=== PATIENT | male | born 1955 | race Caucasian/White ===

== ENCOUNTER 2019-09-16 11:56 | Observation (INO) | payer BC, MEDICARE, OTHER ==
--- NOTE | 2019-09-16 12:13 | ED ---
HPI Chest Pain - HPI Summary HPI Summary: This pt is a 64 y/o male presenting to [facility] via EMS c/o chest pain today. Pt reports this morning he woke up not "feeling himself." He notes he was very tired, exhausted, and "felt like the wind got knocked out" of him. He states his chest pain began around 1000 today and describes his pain as pressure. He denies nausea, vomiting, dizziness. Pt went to the pain clinic in [place] and was noted by the staff that patient was having difficulty breathing. Per nurse' s note, "Pt. was put on the pulse ox monitor and noticed that pt. was only SATing @ 90%." EMS administered aspirin and 2L of oxygen via NC with mild relief. Patient reports he uses a CPAP machine at night and has noticed recently it is harder to breathe with it. Pt additionally notes his legs ache from the knee down. PMHx: high cholesterol, HTN, DM type 2, COPD, osteomyelitis. Denies hx of MS. Pt reports one toe and a half on the left were amputated 3-4 weeks ago and is currently on vancomycin for osteomyelitis. He uses Heparin flush to flush his line. Denies taking any anticoagulants. Pt lives in [place], [place]. - History of Current Complaint Time Seen by Provider: 09/16/19 12:00 Hx Obtained From: Patient Onset/Duration: Started Hours Ago, Still Present Timing: Lasting Hours Current Severity: Moderate Pain Intensity: 5 Pain Scale Used: 0-10 Numeric Chest Pain Location: Diffuse Chest Pain Radiates: No Character: Pressure/Squeezing - pressure Aggravating Factor(s): Nothing Alleviating Factor(s): Nothing Associated Signs and Symptoms: Positive: Chest Pain, Shortness of Breath. Negative: Dizziness, Fever, Nausea, Vomiting - Allergy/Home Medications Allergies/Adverse Reactions: Allergies Allergy/AdvReac Type Severity Reaction Status Date / Time fentanyl Allergy Swelling Verified 09/16/19 12:16 oxycodone Allergy Swelling Verified 09/16/19 12:16 sertraline [From Zoloft] Allergy Hives Verified 09/16/19 12:16 Home Medications: Home Medications Albuterol/Ipratropium NEB.ENID* [Duoneb (Albuterol 2.5 MG/Ipratropium 0.5 MG)] 1 neb INH QID PRN 09/16/19 [History Confirmed 09/16/19] Bumetanide TAB* [Bumex 2 MG TAB*] 4 mg PO DAILY 09/16/19 [History Confirmed ] Dronabinol CAP* [Marinol CAP*] 5 mg PO QAM 09/16/19 [History Confirmed 09/16/19] Dronabinol CAP* [Marinol CAP*] 10 mg PO QPM 09/16/19 [History Confirmed 09/16/19 ] Dupilumab [Dupixent] 300 mg SUBCUT ONCE 09/16/19 [History Confirmed 09/16/19] Fenofibrate(NF) [Tricor(NF)] 145 mg PO DAILY 09/16/19 [History Confirmed ] Finasteride TAB* [Proscar TAB*] 5 mg PO DAILY 09/16/19 [History Confirmed ] Gabapentin CAP(*) [Neurontin 300 CAP(*)] 600 mg PO TID 09/16/19 [History Confirmed 09/16/19] Glucagon [Baqsimi] 3 mg LEFT NARE ONCE PRN 09/16/19 [History Confirmed 09/16/19] Hydrocortisone INJ* 100 MG/2ML [Solu-CORTEF*] 100 mg IM ONCE 09/16/19 [History Confirmed 09/16/19] Hydrocortisone TAB* [Cortef TAB*] 20 mg PO BID 09/16/19 [History Confirmed 09/16] Insulin Degludec [Tresiba] 160 unit SUBCUT QAM 09/16/19 [History Confirmed 09/16] Insulin Lispro [Humalog Kwikpen] 0 unit SUBCUT .SLIDING SCALE TID MDD 250u 09/16 [History Confirmed 09/16/19] Levorphanol 2 mg (Nf) 1 mg PO QID PRN 09/16/19 [History Confirmed 09/16/19] Levothyroxine TAB* [Synthroid TAB*] 75 mcg PO DAILY 09/16/19 [History Confirmed 09/16/19] Levothyroxine TAB* [Synthroid TAB*] 200 mcg PO DAILY 09/16/19 [History Confirmed 09/16/19] Mupirocin 2% OINT* [Bactroban 2 % Oint*] 1 applic TOPICAL BID PRN 09/16/19 [ History Confirmed 09/16/19] Normal Saline 250 ml IV Q12H 09/16/19 [History Confirmed 09/16/19] Marvin-3 Fatty Acids (Nf) [Fish Oil (NF)] 2,000 mg PO BID 09/16/19 [History Confirmed 09/16/19] Rosuvastatin (NF) [Crestor (NF)] 20 mg PO BEDTIME 09/16/19 [History Confirmed ] Silodosin(NF) [Rapaflo(NF)] 4 mg PO DAILY 09/16/19 [History Confirmed 09/16/19] Tamsulosin CAP* [Flomax CAP*] 0.4 mg PO DAILY 09/16/19 [History Confirmed ] Valsartan TAB* [Diovan TAB*] 160 mg PO DAILY 09/16/19 [History Confirmed ] Vancomycin 1250mg/250ml 1,250 mg IV Q12H 09/16/19 [History Confirmed 09/16/19] Vancomycin HCl in 5 % Dextrose [Vancomycin 1.5 Gram/250 ml-D5w] 1.5 gm IV DAILY 09/16/19 [History Confirmed 09/16/19] Venlafaxine ER (NF) [Effexor ER (NF)] 150 mg PO DAILY 09/16/19 [History Confirmed 09/16/19] metFORMIN* [Glucophage 500 MG TAB *] 1,000 mg PO BID 09/16/19 [History Confirmed 09/16/19] PMH/Surg Hx/FS Hx/Imm Hx Endocrine/Hematology History: Reports: Hx Diabetes - type 2 Cardiovascular History: Reports: Hx Hypercholesterolemia, Hx Hypertension Denies: Hx Myocardial Infarction Respiratory History: Reports: Hx Chronic Obstructive Pulmonary Disease (COPD) Musculoskeletal History: Reports: Other Musculoskeletal History - Osteomyelitis - Surgical History Surgical History: Yes Surgery Procedure, Year, and Place: 2 back surgeries. Amputation of toes Infectious Disease History: No Infectious Disease History: Denies: Traveled Outside the [place] in Last 30 Days - Family History Known Family History: Negative: Cardiac Disease - Social History Alcohol Use: None Substance Use Type: Reports: Marijuana Smoking Status (MU): Former Smoker Review of Systems Negative: Fever, Skin Diaphoresis Positive: Chest Pain Positive: Shortness Of Breath Negative: Vomiting, Nausea Musculoskeletal: Other - POSITIVE: leg pain Neurological: Other - NEGATIVE: dizziness All Other Systems Reviewed And Are Negative: Yes Physical Exam - Summary Physical Exam Summary: VITAL SIGNS: Reviewed. GENERAL: Patient is a well-developed and obese male who is lying comfortable in the stretcher in no acute distress. HEAD AND FACE: No signs of trauma. No ecchymosis, hematomas or skull depressions. No sinus tenderness. EYES: PERRLA, EOMI x 2, No injected conjunctiva, no nystagmus. EARS: Hearing grossly intact. Ear canals and tympanic membranes are within normal limits. MOUTH: Oropharynx within normal limits. NECK: Supple, trachea is midline, no adenopathy, no JVD, no carotid bruit, no c- spine tenderness, neck with full ROM. CHEST: Symmetric, no tenderness at palpation LUNGS: Clear to auscultation bilaterally. No wheezing or crackles. CVS: Regular rate and rhythm, S1 and S2 present, no murmurs or gallops appreciated. ABDOMEN: Soft, non-tender. No signs of distention. No rebound, no guarding, and no masses palpated. Bowel sounds are normal. EXTREMITIES: FROM in all major joints, no edema, no cyanosis or clubbing. Amputation of the left first and second toes. NEURO: Alert and oriented x 3. No acute neurological deficits. Speech is normal and follows commands. SKIN: Dry and warm Triage Information Reviewed: Yes Vital Signs On Initial Exam: Initial Vitals Temp Pulse Resp BP Pulse Ox 96.9 F 85 20 173/100 98 09/16/19 11:57 09/16/19 11:57 09/16/19 11:57 09/16/19 11:57 09/16/19 11:57 Vital Signs Reviewed: Yes Procedures - Sedation Patient Received Moderate/Deep Sedation with Procedure: No Diagnostics - Vital Signs Vital Signs Temp Pulse Resp BP Pulse Ox 09/16/19 11:57 96.9 F 85 20 173/100 98 - Laboratory Result Diagrams: 09/16/19 12:25 09/16/19 12:25 Lab Statement: Any lab studies that have been ordered have been reviewed, and results considered in the medical decision making process. - Radiology Chest XR Radiology Interpretation Completed By: Radiologist Summary of Radiographic Findings: IMPRESSION: Pulmonary vascular congestion. Dr. Angel has reviewed this report. - EKG 11:57 Cardiac Rate: NL - at 75 bpm EKG Rhythm: 2nd Degree HB Summary of EKG Findings: EKG at 1157 shows second degree AV block at [address] elevations. No old EKG for comparison. ED physician has reviewed and interpreted this EKG. 12:15 Cardiac Rate: NL - at 87 bpm EKG Rhythm: 2nd Degree HB Summary of EKG Findings: EKG at 1215 shows again a second degree heart block at [address] elevations. ED physician has reviewed and interpreted this EKG. Chest Pain Course/Dx - Course Assessment/Plan: This pt is a 64 y/o male presenting to [facility] via EMS c/o chest pain today. Pt reports this morning he woke up not "feeling himself." He notes he was very tired, exhausted, and "felt like the wind got knocked out" of him. He states his chest pain began around 1000 today and describes his pain as pressure. He denies nausea, vomiting, dizziness. Pt went to the pain clinic in [place] and was noted by the staff that patient was having difficulty breathing. Per nurse's note, "Pt. was put on the pulse ox monitor and noticed that pt. was only SATing @ 90%." EMS administered aspirin and 2L of oxygen via NC with mild relief. Patient reports he uses a CPAP machine at night and has noticed recently it is harder to breathe with it. Pt additionally notes his legs ache from the knee down. PMHx: high cholesterol, HTN, DM type 2, COPD, osteomyelitis. Denies hx of MS. Pt reports one toe and a half were amputated 3- 4 weeks ago and is currently on vancomycin for osteomyelitis. He uses Heparin flush to flush his line. Denies taking any anticoagulants. Blood work without any significant abnormality except for slight anemia, glucose is 108, magnesium 1.7, CK-MB is 12.7. EKG shows a sinus rhythm with a second agree AV block. HEART score: 5. Patient was given aspirin by EMS. The patient also was given Solu-Medrol by EMS. In the ED course the patient was given magnesium. I discussed my physical exam and findings with Dr. Cummings from cardiology and he will consult for this patient. I discussed my physical exam and test results with Dr. Moctezuma from the hospitalist services and she agrees to admit the patient to her services. The patient is hemodynamically stable, alert and oriented x 3. - Chest Pain Differential Diagnosis/HQI/PQRI: Acute MS, ACS, Angina, CHF, Chest Wall, GI Disease, Lower Respiratory Infection, Pulmonary Edema - Diagnoses Provider Diagnoses: Chest pain - Provider Notifications Discussed Care Of Patient With: Monica Moctezuma Time Discussed With Above Provider: 13:06 Instructed by Provider To: Other - Discussed with Dr. Moctezuma, hospitalist, who accepted pt for admission. [13:10] Dr. Cummings, italian teacher, reports pt will consult. Discharge ED - Sign-Out/Discharge Documenting (check all that apply): Patient Departure - Admit to [facility] [place] - Discharge Plan Condition: Stable Disposition: ADMITTED TO [facility] - Billing Disposition and Condition Condition: STABLE Disposition: Admitted to [facility] - Attestation Statements Document Initiated by Elvis: Yes Documenting Scribe: Sushma Park Provider For Whom Cariibe is Documenting (Include Credential): Ab Angel MD Scribe Attestation: Sushma Angulo, scribed for Ab Angel MD on 09/16/19 at 2144. Scribe Documentation Reviewed: Yes Provider Attestation: The documentation as recorded by the Sushma sena accurately reflects the service I personally performed and the decisions made by wi, Ab Angel MD Status of Scribe Document: Viewed
[2019-09-16 12:33] LABS: ABS Eosinophils 0.2 10^3/ul (0-0.6); ABS Lymphocytes 2.4 10^3/ul (1.0-4.8); ABS Monocytes 0.6 10^3/ul (0-0.8); ABS Neutrophils 4.2 10^3/ul (1.5-7.7); Eosinophil % 3.2 %; Hematocrit 35 % (42-52); Hemoglobin 11.3 g/dL (14.0-18.0); Lymphocyte % 31.9 %; Mean Corpuscular HGB Conc 33 g/dL (31-36); Mean Corpuscular Hemoglobin 28 pg (27-31); Mean Corpuscular Volume 85 fL (80-94); Mean Platelet Volume 8.4 fL (7.4-10.4); Platelet Count 208 10^3/uL (150-450); Red Blood Count 4.07 10^6 /uL (4.18-5.48); Red Cell Distribution Width 18 % (10-15); White Blood Count 7.4 10^3/uL (3.5-10.8)
[2019-09-16 12:42] LABS: INR 1.09 (0.82-1.09)
[2019-09-16 12:53] LABS: Troponin I 0.01 ng/mL (<0.03)
[2019-09-16 12:55] LABS: CKMB ng/mL 12.7 ng/mL (0.6-6.3)
[2019-09-16 12:57] LABS: Albumin 4.1 g/dL (3.2-5.2); Albumin/Globulin Ratio 1.4 (1-3); BUN/Creatinine Ratio 29.3 (8-20); Calcium 9.9 mg/dL (8.6-10.3); EGFR African American 114.1 (>60); EGFR Non-African American 94.3 (>60); Magnesium 1.7 mg/dL (1.9-2.7); Potassium 4.4 mmol/L (3.5-5.0); Total Bilirubin 0.4 mg/dL (0.2-1.0); Total Protein 7.1 g/dL (6.4-8.9)
[2019-09-16] MEDS ORDERED: Magnesium Oxide TAB* 400 MG PO ONE (13:04)
--- OUTSIDE RECORDS SUMMARY | 2019-09-16 13:18 | XMS REPORT | Continuity of Care Document ---
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 Practitioner Problems Active Problems Provider Date Type 2 diabetes mellitus Ancelmo Grey DO, MPH Onset: 06/15/2015 Social History Type Date Description Comments Sex Unknown Cigarette Use Current Cigarette Smoker 1 Pack Daily ETOH Use Denies alcohol use Tobacco Use Start: Unknown End: Unknown Patient is a former smoker Smoking Status Reviewed: 08/18/19 Patient is a former smoker Allergies, Adverse Reactions, Alerts Active Allergies Reaction Severity Comments Date Fentanyl 06/15/2015 Oxycontin 06/15/2015 Januvia 06/15/2015 Zoloft 06/15/2015 Medications Active Medications SIG Qnty Indications Ordering Date Provider Levorphanol Tartrate 1/2-1 by mouth 60tabs Ancelmo Grey, 05/04/2016 2mg Tablets every 8-12 hours RADHA CORTES as directed chronic pain patient. Fenofibrate 1 by mouth every Unknown 145mg Tablets day Gabapentin si by mouth Unknown 300mg Capsules twice a day as directed Hydrocortisone si by mouth Unknown 20mg Tablets q12 hours as directed Levothyroxine Sodium 1 by mouth every Unknown 100mcg, day 125mcg Tablets Metformin HCL 2 by mouth twice Unknown 500mg Tablets daily Tamsulosin HCL 1 by mouth every Unknown 0.4mg Capsules day Valsartan 1 tab daily BP Unknown 160mg Tablets Duloxetine HCL Q day depression Unknown 60mg Caps DR Part Hydrochlorothiazide Unknown 12.5mg Tablets Vitamin D2 1 every sunday Unknown 50,000Unit Tablets Novolog Mix 70/30 Unknown Prefilled Flexpen (70-30)100Unit/ML Supn Ipratropium 2-3 times daily Unknown [place]/Albuterol Sulfate 0.5-2.5(3)mg/3ML Solution Tresiba Unknown 100Unit/ML Solution Immunizations Description No Information Available Vital Signs Date Vital Result Comment 08/18/2019 2:08pm BP Systolic 136 mmHg BP Diastolic 86 mmHg Heart Rate 84 /min Respiratory Rate 20 /min Height 74 inches 6'2" Weight 320.00 lb Pain Level 5 Pain at this time. Pain Level With Medicine 4 on average with meds Pain Level Without Medicine 9 without meds BMI (Body Mass Index) 41.1 kg/m2 07/18/2019 10:09am BP Systolic 140 mmHg BP Diastolic 78 mmHg Heart Rate 80 /min Respiratory Rate 20 /min Height 74 inches 6'2" Weight 310.00 lb Pain Level 5 Pain at this time. 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 Z79.891 jail (current) use of opiate analgesic Office Visit 06/12/2019 11:15a Main Office as Ancelmo Grey G89.21 Chronic pain due Of 09/27/13 , MPH to trauma M54.5 Low back pain M54.16 Radiculopathy, lumbar region 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 Office Visit 05/15/2019 10:15a Main Office as Ancelmo Grey G89.21 Chronic pain due Of 09/27/13 DO, MPH to trauma M54.5 Low back pain M54.16 Radiculopathy, lumbar region Z79.891 jail (current) use of opiate analgesic Z79.891 jail (current) use of opiate analgesic Office Visit 04/09/2019 11:00a Main Office as GreyAncelmo henderson G89.21 Chronic pain due Of 09/27/13 DO, MPH to trauma M54.16 Radiculopathy, lumbar region M54.5 Low back pain 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 Office Visit 03/18/2019 10:45a Main Office as GreyAncelmo henderson G89.21 Chronic pain due Of 09/27/13 DO, MPH to trauma M54.5 Low back pain M54.16 Radiculopathy, lumbar region Z79.891 jail (current) use of opiate analgesic Z79.891 jail (current) use of opiate analgesic Assessments Date Code Description Provider 08/18/2019 G89.21 Chronic pain due to trauma Grey, Ancelmo, DO, MPH 08/18/2019 M54.5 Low back pain Grey, Ancelmo, DO, MPH 08/18/2019 M54.16 Radiculopathy, lumbar region Grey, Ancelmo, DO, MPH 08/18/2019 Z79.891 jail (current) use of opiate analgesic Grey, Ancelmo , DO, MPH 08/18/2019 Z79.891 jail (current) use of opiate analgesic Grey, Ancelmo , DO, MPH 07/18/2019 G89.21 Chronic pain due to trauma Grey, Ancelmo, DO, MPH 07/18/2019 M54.5 Low back pain Grey, Ancelmo, DO, MPH 07/18/2019 M54.16 Radiculopathy, lumbar region Grey, Ancelmo, DO, MPH 07/18/2019 Z79.891 jail (current) use of opiate analgesic Grey, Ancelmo , DO, MPH 07/18/2019 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 Grey, Ancelmo , DO, MPH 06/12/2019 G89.21 Chronic pain due to trauma Grey, Ancelmo, DO, MPH 06/12/2019 M54.5 Low back pain Grey, Ancelmo, DO, MPH 06/12/2019 M54.16 Radiculopathy, lumbar region Grey, Ancelmo, DO, MPH 06/12/2019 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 Grey, Ancelmo , DO, MPH 06/12/2019 Z79.891 jail (current) use of opiate analgesic Grey, Ancelmo , DO, MPH 05/15/2019 G89.21 Chronic pain due to trauma Grey, Ancelmo, DO, MPH 05/15/2019 M54.5 Low back pain Grey, Ancelmo, DO, MPH 05/15/2019 M54.16 Radiculopathy, lumbar region Grey, Ancelmo, DO, MPH 05/15/2019 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 Grey, Ancelmo , DO, MPH 05/15/2019 Z79.891 jail (current) use of opiate analgesic Grey, Ancelmo , DO, MPH 04/09/2019 G89.21 Chronic pain due to trauma Grey, Ancelmo, DO, MPH 04/09/2019 M54.16 Radiculopathy, lumbar region Grey, Ancelmo, DO, MPH 04/09/2019 M54.5 Low back pain Grey, Ancelmo, DO, MPH 04/09/2019 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 Grey, Ancelmo , DO, MPH 04/09/2019 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 Grey, Ancelmo , DO, MPH 03/18/2019 G89.21 Chronic pain due to trauma Grey, Ancelmo, DO, MPH 03/18/2019 M54.5 Low back pain Grey, Ancelmo, DO, MPH 03/18/2019 M54.16 Radiculopathy, lumbar region Grey, Ancelmo, DO, MPH 03/18/2019 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 Symptoms and complaints discussed and reviewed today. No significant changes in physical findings. Continue current medical pain management.M54.5 Low back painComments:Chronic. Symptoms and complaints discussed and reviewed today.No changes in physical findings. Patient is stable and comfortable when current medical therapy is rendered.M54.16 Radiculopathy, lumbar regionComments:Chronic. Symptoms and complaints discussed and reviewed today. No changes in physical findings; patient is stable on current medical therapy.Z79.891 jail (current) use of opiate analgesicNew Labs:Urine Drug Screen, Ordered: 08/18/19Comments:Urine drug screen sample taken. Rapid Point of Care Cup was reviewed in office with patient. Will send out UDT Rapid to [facility] lab for confirmation testing. Urine Drug Testing (UDT) was done today to monitor opiate use and to monitor possible use of illicit substances. I will discuss the results at the next appointment from the [facility] lab.The following tests were ordered:6 AM, AMPH, WILLIAM, EMELY, BUP, CARIS, COCM, ETG, FENT, MCSHSG, OPI, OXY, PCP, TAPEN, XTSY, ZOLP. A urine drug test ( UDT) using a rapid screen cup was ordered for this patient and collected on site today. Creatinine has been ordered as well for specimen validity, not for kidney function. Urine Drug Testing is a mandatory component of chronic opioid management, as part of the baseline assessment and ongoing re-assessment of opioid therapy. Per [place] [employer], [place] Non- Acute Pain Medical Treatment Guidelines, section F.3.d.i. This test is to be used in conjunction with other clinical information when decisions are to be made to continue, adjust or discontinue treatment. This information includes clinical observation, results of addiction screening, pill counts, and prescription drug monitoring reports. Preliminary UDT screen results are not final and should not be used to determine patient care or plan of treatment. This sample will be sent out for a more comprehensive quantitative confirmation LCMS study. It is part of the treatment process of prescribing controlled substances and is considered standard of care at this clinic.AllComments: Continue current medical pain management; injection therapy, osteopathic manipulation, PT / modalities, and consults as needed to manage chronic pain.Non - opioid pain management discussed and optionsdiscussed.Side effects discussed; anticipatory guidance given. Patient clearly understand and agree with all medical treatments and suggestions. 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 Importance of regular nutrition throughout the day discussed.Activity as toleratedContinue with PCP Functional Status Description No Information Available Mental Status Description No Information Available Referrals Description No Information Available
--- OUTSIDE RECORDS SUMMARY | 2019-09-16 13:18 | XMS REPORT | Continuity of Care Document ---
:1955 External Reference #:[id number] Author Name Ancelmo Grey DO, MPH Address [address] [place] [address], [address] [place] [address] Care Team Providers Name Role Phone Carolina Glez FNP - Nurse Care Team Information Crew Foreman [phone] Practitioner Problems Active Problems Provider Date Type 2 diabetes mellitus Ancelmo Grey DO, MPH Onset: 06/15/2015 Social History Type Date Description Comments Sex Unknown Cigarette Use Current Cigarette Smoker 1 Pack Daily ETOH Use Denies alcohol use Tobacco Use Start: Unknown End: Unknown Patient is a former smoker Smoking Status Reviewed: 07/18/19 Patient is a former smoker Allergies, Adverse [...] (70-30)100Unit/ML Supn Ipratropium 2-3 times daily Unknown [place]/Albuterol Sulfate 0.5-2.5(3)mg/3ML Solution Tresiba Unknown 100Unit/ML Solution Immunizations Description No Information Available Vital Signs Date Vital Result Comment 07/18/2019 10:09am BP Systolic 140 mmHg BP Diastolic 78 mmHg Heart Rate 80 /min Respiratory Rate 20 /min Height 74 inches 6'2" Weight 310.00 lb Pain Level 5 Pain at this time. Pain Level With Medicine 5 on average with meds Pain Level Without Medicine 9 without meds BMI (Body Mass Index) 39.8 kg/m2 06/12/2019 10:08am BP Systolic 148 mmHg BP Diastolic 84 mmHg Heart Rate 86 /min Respiratory Rate 20 /min Height 74 inches 6'2" Weight 320.00 lb Pain Level 8 Pain at this time. 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 Office Visit 05/15/2019 10:15a Main Office as Ancelmo Grey G89.21 Chronic pain due Of 09/27/13 , MPH to trauma M54.5 Low back pain M54.16 Radiculopathy, lumbar region Z79.891 [facility] (current) use of opiate analgesic Z79.891 [facility] (current) use of opiate analgesic Office Visit 04/09/2019 11:00a Main Office as Ancelmo Grey G89.21 Chronic pain due Of 09/27/13 DO, MPH to trauma M54.16 Radiculopathy, lumbar region M54.5 Low back pain 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 Z79.891 [facility] (current) use of opiate analgesic Office Visit 03/18/2019 10:45a Main Office as GreyAncelmo henderson, G89.21 Chronic pain due Of 09/27/13 DO, MPH to trauma M54.5 Low back pain M54.16 Radiculopathy, lumbar region Z79.891 [facility] (current) use of opiate analgesic Z79.891 [facility] (current) use of opiate analgesic Office Visit 02/06/2019 9:45a Main Office as GreyCarmenza hendersonph, G89.21 Chronic pain due Of 09/27/13 DO, MPH to trauma M54.16 Radiculopathy, lumbar region M54.5 Low back pain Z79.891 [facility] (current) use of opiate analgesic Z79.891 [facility] (current) use of opiate analgesic Assessments Date Code Description Provider 07/18/2019 G89.21 Chronic pain due to trauma Grey, Ancelmo, DO, MPH 07/18/2019 M54.5 Low back pain Grey, Ancelmo, DO, MPH 07/18/2019 M54.16 Radiculopathy, lumbar region Grey, Ancelmo, DO, MPH 07/18/2019 Z79.891 [facility] (current) use of opiate analgesic Grey, Ancelmo , DO, MPH 07/18/2019 Z79.891 [facility] (current) use of opiate analgesic Grey, Ancelmo , DO, MPH 06/12/2019 G89.21 Chronic pain due to trauma Grey, Ancelmo, DO, MPH 06/12/2019 M54.5 Low back pain Grey, Ancelmo, DO, MPH 06/12/2019 M54.16 Radiculopathy, lumbar region Grey, Ancelmo, DO, MPH 06/12/2019 Z79.891 [facility] (current) use of opiate analgesic Grey, Ancelmo , DO, MPH 06/12/2019 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 Grey, Ancelmo , DO, MPH 05/15/2019 G89.21 Chronic pain due to trauma Grey, Ancelmo, DO, MPH 05/15/2019 M54.5 Low back pain Grey, Ancelmo, DO, MPH 05/15/2019 M54.16 Radiculopathy, lumbar region Grey, Ancelmo, DO, MPH 05/15/2019 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 Grey, Ancelmo , DO, MPH 05/15/2019 Z79.891 [facility] (current) use of opiate analgesic Grey, Ancelmo , DO, MPH 04/09/2019 G89.21 Chronic pain due to trauma Grey, Ancelmo, DO, MPH 04/09/2019 M54.16 Radiculopathy, lumbar region Grey, Ancelmo, DO, MPH 04/09/2019 M54.5 Low back pain Grey, Ancelmo, DO, MPH 04/09/2019 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 Grey, Ancelmo , DO, MPH 04/09/2019 Z79.891 [facility] (current) use of opiate analgesic Grey, Ancelmo , DO, MPH 03/18/2019 G89.21 Chronic pain due to trauma Grey, Ancelmo, DO, MPH 03/18/2019 M54.5 Low back pain Grey, Ancelmo, DO, MPH 03/18/2019 M54.16 Radiculopathy, lumbar region Grey, Ancelmo, DO, MPH 03/18/2019 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 Grey, Ancelmo , DO, MPH 03/18/2019 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 Grey, Ancelmo , DO, MPH 02/06/2019 G89.21 Chronic pain due to trauma Grey, Ancelmo, DO, MPH 02/06/2019 M54.16 Radiculopathy, lumbar region Grey, Ancelmo, DO, MPH 02/06/2019 M54.5 Low back pain Grey, Ancelmo, DO, MPH 02/06/2019 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 Grey, Ancelmo , DO, MPH 02/06/2019 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 Ancelmo Grey DO, MPH Plan of Treatment Future Appointment(s):08/12/2019 10:00 am - Ancelmo Grey DO, MPH at Main Office as Of 09/27/1410 - Ancelmo Grey DO, MPHG89.21 Chronic pain [...] patient is stable on current medical therapy.Z79.891 [facility] (current) use of opiate analgesicNew Labs:Urine Drug Screen, Ordered: 07/18/19Comments:Urine drug screen sample taken. Rapid Point of [...] and ongoing re-assessment of opioid therapy. Per [place] [employer], [place] Non- Acute Pain Medical Treatment Guidelines, section [...] while maintaining satisfactory side effect profile andminimizing terminal make up operator end-organ damage. Importance of regular nutrition throughout the day discussed.Activity as toleratedContinue with PCP Functional Status Description No Information Available Mental Status Description No Information Available Referrals Description No Information Available
[2019-09-16 13:32] LABS: Urine Appearance Clear; Urine Bilirubin Negative (Negative); Urine Blood Negative (Negative); Urine Color Straw; Urine Glucose Negative (Negative); Urine Ketones Negative (Negative); Urine Nitrite Negative (Negative); Urine Protein Negative (Negative); Urine Urobilinogen Negative (Negative)
[2019-09-16 13:36] LABS: TSH (Thyroid Stimulating Horm) 7.24 mcIU/mL (0.34-5.60)
[2019-09-16 13:36] LABS: Urine Bacteria Absent (Absent); Urine Red Blood Cell Trace(0-2/hpf) (Absent); Urine White Blood Cell 2+(11-20/hpf) (Absent)
[2019-09-16] MEDS ORDERED: Albuterol/Ipratropium NEB.SOL* Albuterol 2.5 MG/Ipratropium 0.5 MG 3 ML INH PRN (14:24)
[2019-09-16] MEDS ORDERED: Dextrose 50% Syringe 50 ML* 25 GM/50 ML SYRINGE IV PUSH PRN (14:33)
--- NOTE | 2019-09-16 16:55 | HP ---
HISTORY AND PHYSICAL: ADDENDUM: The case was reviewed and discussed with Chrystal Grant, nurse practitioner. Mr. Giraldo is a 64-year-old male with a complex past medical history that includes morbid obesity, hypertension, type 2 diabetes, chronic pain, recent admission to [facility] for toe osteomyelitis requiring amputation and IV vancomycin. The patient receives all his care in the [facility]. He went to see his pain specialist (Dr. Grey) today and he stated that he was not feeling well with complaints of shortness of breath, very tired, chest pressure and when he was seen at wound clinic, he was noted to have difficulty breathing, reason why EMS was called and the patient was brought to our facility for further evaluation. Unfortunately, despite even looking at [facility], we were not able to get significant records from [facility] yet. I do see a note from Dr. Grey's office from 08/18/19 and at that point, there was a mention that he was admitted to [facility] from 08/08/19 to 08/14/19 with part of his big toe on the left amputated, diagnosed with sepsis and MRSA and he was started on vancomycin through a PICC with plan for treatment for 6 weeks. At the time of my interview, the patient states that he is very tired and was not able to volunteer much information. Workup in the emergency room included a CBC with a normal white cell count, a blood gas with a normal CO2 and pH. His chemistry showed a slightly low magnesium and elevated TSH, but no other marked abnormalities. His UA showed only trace leukocyte esterase and 2+ wbc's. A chest x-ray showed pulmonary vascular congestion, an EKG showed a rhythm suggestive of second degree heart block, but it is unclear to me if this is truly a second degree heart block. This was discussed with Cardiology and the plan is to monitor for now. There is no indication for emergent pacemaker. There is concern for sepsis as the patient is being treated for apparent osteomyelitis, but we need to obtain records from [facility] to pinpoint exactly what happened on the admission. We will check CRP. We will continue vancomycin for now and add cefepime as the toe appears to be more erythematous than in the past. His chest pressure may be cardiac event and he does have significant risk factors for coronary artery disease. We will check serial troponins. He will be monitored on telemetry and depending on his clinical condition, he will have pharmacological Myoview stress test in the morning. He is lethargic, but arousable to voice and oriented x3. He is able to tell me that he does not feel well and that he is exhausted. He is on an older opioid ( levorphanol) and there is reported multiple side effects on opioids, so we will request pain consultation with Dr. Mccain to help with his pain management. His opioid use may be playing a role in his lethargy, but I am to revert since he has been on opioids for almost 20 years and I rather monitor him for now than to put him into risk, put him into withdrawal. The recommendations were discussed with Chrystal Grant, nurse practitioner. The patient will be closely monitored in the telemetry unit. [id number]/CPS #: [id number] FRANCES
--- NOTE | 2019-09-16 17:16 | CONSULT ---
Consult Consult: September 16, 2019 INPATIENT PAIN CONSULTATION Mele Giraldo is a 64 year old male. 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 According to the patient, while working for [employer] in 1988 he injured his low back. He has had two lumbar laminectomies. He has seen the pain clinics in [place], including the [facility] with Joseph Carter, Ph. D., and the [facility] with Sabra Franco NP. For the past 5 years, he has seen Dr. Ancelmo Grey in [place]. He has been on Levorphanol 1 mg TID for his pain. He was driven to Dr. Grey' office today for a routine follow up. When he got there, he felt like he couldn't get his breath and was having chest pain. He was sent to the [facility] for evaluation. His initial troponin was 0.01. CXR showed vascular congestion. Lactic acid 1.4. He took levorphanol last night, but none today. He also takes Marinol which is prescribed by the pain clinic at [facility], run by Shaila Medina MD. Unfortunately, Levorphanol is not available at [facility]. I am asked to see for consultation. PAST MEDICAL HISTORY: Diabetes, COPD, PVD, recent left toe amputation in July for ?osteo, pheochromocytoma and adrenalectomy Allergies Allergy/AdvReac Type Severity Reaction Status Date / Time fentanyl Allergy Swelling Verified 09/16/19 12:16 oxycodone Allergy Swelling Verified 09/16/19 12:16 sertraline [From Zoloft] Allergy Hives Verified 09/16/19 12:16 Current Medications Acetaminophen (Tylenol Tab*) 650 mg PO Q4H PRN PRN Reason: MILD PAIN or TEMP > 100.4 Albuterol/Ipratropium (Duoneb (Albuterol 2.5 Mg/Ipratropium 0.5 Mg)) 1 neb INH QID PRN PRN Reason: SOB/WHEEZING Atorvastatin Calcium (Lipitor*) 40 mg PO BEDTIME JONATHON Bumetanide (Bumex Tab*) 4 mg PO DAILY JONTAHON Dextrose (D50w Syringe 50 Ml*) 12.5 gm IV PUSH .FOR FS < 60 - SS PRN PRN Reason: FS < 60 Dronabinol (Marinol Cap*) 5 mg PO QAM [facility] Dronabinol (Marinol Cap*) 10 mg PO QPM [facility] Last Admin: 09/16/19 17:26 Dose: 10 mg Enoxaparin Sodium (Lovenox(*)) 40 mg SUBCUT Q24H [facility] Last Admin: 09/16/19 17:25 Dose: 40 mg Finasteride (Proscar Tab*) 5 mg PO DAILY [facility] Gabapentin (Neurontin Cap(*)) 600 mg PO TID [facility] Heparin Sodium (Porcine) (Heparin Flush Picc/Ml/Cvc(*)) 1 ml FLUSH 0600,1800 [facility]; Protocol Hydrocortisone Sodium Succinate (Solu-Cortef*) 50 mg IV Q8H [facility] Last Admin: 09/16/19 17:26 Dose: 50 mg Cefepime HCl (Maxipime 2 Gm In Dextrose Duplex (*)) 2 gm in 50 mls @ 100 mls/ hr IV Q12H [facility] Insulin Human Lispro (Humalog*) 0 units SUBCUT ACHS [facility]; Protocol Last Admin: 09/16/19 17:24 Dose: 3 units Levothyroxine Sodium (Synthroid Tab*) 100 mcg PO DAILY@0600 [facility] Levothyroxine Sodium (Synthroid Tab*) 175 mcg PO DAILY@0600 [facility] Tamsulosin HCl (Flomax Cap*) 0.4 mg PO DAILY [facility] Valsartan (Diovan Tab*) 160 mg PO DAILY [facility] Venlafaxine HCl (Effexor Xr Cap*) 150 mg PO DAILY [facility] SOCIAL HISTORY: Non smoker, non drinker. Hasn't worked since his back injury in 1988 Vital Signs Temp Pulse Resp BP Pulse Ox 97.4 F 85 22 146/96 98 09/16/19 16:00 09/16/19 16:00 09/16/19 17:26 09/16/19 16:00 09/16/19 16:00 EXAM: GENERAL: Somewhat winded, on O2 via NC LUNGS: Scattered wheeze HEART: reg rhythm ABDOMEN: Soft EXTREMITIES: Missing digits 1 and 2 on left foot NEUROLOGIC: Decreased sensation in feet. Can move all 4 extremities ASSESSMENT: 1. Chronic Low Back Pain 2. Chronic Opioid Use 3. COPD vs CHF vs ACS PLAN: For his chronic pain, Levorphanol is not available. He has allergies to fentanyl and oxycodone. He has tolerated Dilaudid in the past. Will write for Dilaudid, 2 mg Q 6 PRN. I will follow as needed
[2019-09-16 17:17] LABS: C Reactive Protein 4.09 mg/L (<8.01)
[2019-09-16] MEDS: Insulin LISPRO* 1 UNITS UNIT SUBCUT SCH ×2 (17:24→22:10)
[2019-09-16] MEDS: Enoxaparin(*) 40 MG/0.4 ML SYR SUBCUT SCH (17:25)
[2019-09-16] MEDS: Hydrocortisone INJ* 100 MG/2 ML VIAL (in pyxis) IV SCH (17:26)
[2019-09-16] MEDS: Dronabinol CAP* 2.5 MG PO SCH (17:26)
[2019-09-16] MEDS: Cefepime 2 GM in Dextrose(*) 2 GM/50 ML BAG IV SCH (17:46)
--- NOTE | 2019-09-16 18:27 | HP ---
ADDENDUM NOW INCLUDED ON THIS REPORT CC: TAMARA Bowens, Cosmo Gill * HISTORY AND PHYSICAL: DATE OF ADMISSION: 09/16/19 PROVIDER: Chrystal Grant NP. PRIMARY CARE PROVIDER: TAMARA Bowens. ATTENDING PHYSICIAN WHILE IN THE HOSPITAL: Dr. Yumiko Baron * (dictated by Chrystal Grant NP). CHIEF COMPLAINT: Shortness of breath, chest pressure. HISTORY OF PRESENT ILLNESS: Mr. Giraldo is a 64-year-old male who is a poor historian, with a past medical history significant for type 2 diabetes; hypothyroidism; history of pheochromocytoma, status post adrenal glands removed ; hypertension; high cholesterol; history of sleep apnea, on CPAP at night, who presented to the emergency room from Dr. Grey's office with complaints of exhaustion, fatigue, and increased shortness of breath x1 week, generalized body aches that started last night. Mr. Giraldo is a 64-year-old male. He is a poor historian. The patient does report over the past week he has developed shortness of breath. He reports that generally he does not have issues sleeping with his CPAP at night, but has been unable to tolerate his CPAP at times during the night and has been removing it. The patient also reports that he has generalized body aches and a stomach ache that started approximately 9: 30 this morning. The patient does report that approximately 4 to 6 weeks ago he had a left toe amputated due to osteomyelitis. At that time, he was placed on vancomycin. He currently reports that he is taking 1250 mg IV twice daily. He does have a PICC line in place to his right upper arm. The patient is fatigued. He does fall asleep frequently during interviewing. According to the emergency room report, the patient complained of chest pain this morning and not feeling himself when he woke up, feeling exhausted, tired, and short of breath. He denied any nausea, vomiting, dizziness, lightheadedness. He does report shortness of breath with exertion. He does report that he does not do much walking or exercise. He denies any nausea or vomiting. He does report diarrhea for the last 3 to 4 weeks 2 times a day. He has loose bowel movements and some lower abdominal pain for the last 3 to 4 weeks. He denies any gross hematuria, dysuria, urinary frequency, urgency, or pain with urination. He denies any weakness on one side. No visual complaints, dysphagia, arthralgias, myalgias. He does have sutures in place to his left great toe with iodoform gauze noted to the wound. Surrounding toe is red and warm to touch. He denies any psychosis or anxiety. The patient reports that he gets most of his care at [facility] in [place] and he currently resides in [place], but follows with Dr. Grey from Pain Management for management of his pain. The patient does have chronic back pain from a work injury in 1998, for which he takes levorphanol tartrate. According to the emergency room record, the patient was at the pain clinic and noted by the staff to have difficulty breathing. He was placed on the pulse oximeter and was noted to have O2 saturation of 90%. EMS was called. 2 L was placed via oxygen with mild relief and the patient was brought to the emergency room by EMS. He did receive aspirin 324 mg, 10 mg of Decadron, and a DuoNeb en route to the emergency room. While in the emergency room, the patient had magnesium oxide 800 mg x1. Due to the patient's chest pressure and shortness of breath, Hospital Medicine was asked to see and evaluate the patient for admission. While in the ER the patient had an EKG which was concerning for 2nd degree heart block, case was discussed with Dr. Cummings, who will see the patient in consult. I am obtaining records from [facility] and his primary care doctor at this time. They are currently pending for updated med list. PAST MEDICAL HISTORY: 1. Type 2 diabetes. 2. Hypothyroid. 3. History of pheochromocytoma. 4. Hypertension. 5. High cholesterol. 6. Sleep apnea, on CPAP at night. 7. History osteomyelitis 8. History of MRSA PAST SURGICAL HISTORY: 1. Left partial toe amputation. 2. Adrenal glands removed. 3. Thyroid removed. HOME MEDICATIONS: Include according to list from his primary care doctor's office: 1. Albuterol nebulizer 4 times a day as needed for shortness of breath. 2. Bumex 4 mg p.o. daily. 3. Dronabinol 5 mg 1 capsule in the a.m. and 2 capsules in the p.m. 4. Dupixent 300 mg . 5. Fenofibrate 145 mg p.o. daily. 6. Finasteride 5 mg p.o. daily. 7. Gabapentin 600 mg 3 times a day. 8. Hydrocortisone 20 mg twice daily. 9. Tresiba 160 units every a.m. 10. Lispro sliding scale. 11. Levorphanol 2 mg tablets 0.5 tablet 4 times a day as needed for pain. The patient reports he takes half a tablet in the morning and 1 tablet at night. 12. Levothyroxine 275 mcg p.o. daily. 13. Metformin 1000 mg twice daily. 14. BiPAP machine at the settings of 13/06. 15. Mupirocin topically twice daily to open areas as needed. 16. Brodnax-3 two capsules twice daily. 17. Rosuvastatin 1 tablet p.o. at bedtime. 18. Silodosin 4 mg daily. 19. Tamsulosin 1 cap p.o. daily. 20. Valsartan 160 mg p.o. daily. 21. Vancomycin according to the patient is 1250 mg q.12 hours. 22. Venlafaxine (Effexor) 150 mg p.o. daily. This needs to be followed up and reviewed. Med list is pending from his primary care and [facility]. ALLERGIES: FENTANYL, OXYCODONE, and SERTRALINE. FAMILY HISTORY: No reported history of coronary artery disease, diabetes. Sister with thyroid cancer. SOCIAL HISTORY: Denies any tobacco, alcohol, or illicit drug use. He is . Surrogate decision maker in the event he is unable to make his own decisions is his . He is a full code. REVIEW OF SYSTEMS: He denies any fevers, unintended weight loss. He currently denies any chest pain, chest pressure. Denies any edema. Denies any cough, hemoptysis. He does report exertional shortness of breath x2 weeks. Denies any nausea, vomiting. Does report loose stools x3 to 4 weeks 2 times a day. Does report some lower abdominal pain for the last 3 to 4 weeks after starting vancomycin. Denies any gross hematuria, dysuria, focal weakness, sensory loss. Denies any visual complaints, dysphagia, arthralgias, myalgias, rashes, lesions , open sores, psychosis, or anxiety. The patient denies any lightheadedness or dizziness. Denies any diaphoresis associated with chest pressure that was reported to EMS and the emergency room. PHYSICAL EXAMINATION GENERAL: At this time, Mr. Giraldo is drowsy, resting on the stretcher in the emergency room. He is alert to verbal, but falls asleep frequently during the interview. He is obese. He is not in any acute distress. VITAL SIGNS: Blood pressure 162/92, heart rate 82, respirations 24, O2 saturation 97% on 3 L, temperature was 97.4. HEENT: Head is atraumatic, normocephalic. Eyes: EOMs are intact. Sclerae anicteric and not pale. Oral mucosa is moist. NECK: Supple. LUNGS: Clear to auscultation bilaterally. No wheezes, rales, or rhonchi. CARDIAC: S1, S2. Irregular rate and rhythm. No rubs or gallops. ABDOMEN: Soft, obese, nontender. Bowel sounds are present x4. EXTREMITIES: He is able to move all 4 extremities. Left great toe with sutures and iodoform gauze. No significant amount of drainage. There is surrounding erythema to the total toe that is warm to touch. He does have scattered scabbed areas noted to his hands, arms, and legs. NEUROLOGIC: He is awake. He is drowsy. He does fall asleep frequently during conversation. He is oriented. His speech is clear. There are no gross focal deficits. DIAGNOSTIC STUDIES/LAB DATA: WBCs are 7.4, RBCs 4.07, hemoglobin 11.3, hematocrit is 35, platelet count is 208. INR is 1.09. ABG; pH was 7.42, pCO2 was 43, pO2 was 102, HCO3 was 27.2, oxygen saturation was 97.6%. Sodium 137, potassium 4.4, chloride 104, carbon dioxide was 27, anion gap of 6, BUN was 24, creatinine 0.82, glucose was 108, lactic acid was 1.4, magnesium was 1.7, calcium 9.9. T bili was 0.40, AST was 35, ALT was 31, alkaline phosphatase was 80. Total CK was 210, CK-MB was 12.7, troponin was 0.01 x2, BNP was 45. TSH was 7.24. Urine was within normal limits with the exception to leukocyte esterase that was trace and wbc's were 2+. He had a chest x-ray, radiologist's impression: Pulmonary vascular congestion. He had an electrocardiogram, which showed sinus rhythm with possible second- degree AV block at a rate of 87. ASSESSMENT AND PLAN: Mr. Giraldo is a 64-year-old male with a past medical history significant for diabetes; hypothyroid; history of pheochromocytoma; hypertension; hyperlipidemia; and sleep apnea, on chronic CPAP at night, who presented to the emergency room from his pain management facility due to fatigue and shortness of breath and complaints of chest pressure. He will be admitted under observation for: 1. Chest pressure. The patient is a poor historian. At this time, we are obtaining old records from [facility] as well as his primary care doctor' s office. He reports no history of heart disease, though the patient is taking Bumex at home. His initial EKG showed sinus rhythm with questionable second- degree heart block. I have spoken to Dr. Cummings, who will see the patient in consultation. At this time, the patient's vital signs are stable, he is in no acute distress. No need for emergent pacemaker. In regards to his chest pressure, we will evaluate for coronary syndrome. He will have a transthoracic echocardiogram and a nuclear stress test if advised by Cardiology. He did have aspirin 324 mg by EMS. He will continue on 81 mg p.o. daily. We will continue his atorvastatin 40 mg p.o. daily. The patient has had 2 troponins. His 2 initial troponins were 0.01 x2. The patient is currently chest pain free. He will be placed on [address] [place] [address] telemetry. 2. Osteomyelitis. The patient is currently being treated for osteomyelitis of his left great toe with vancomycin 1250 mg twice daily per the patient. We are obtaining records to confirm this dosage. We will continue his vancomycin. Daily dressing changes to his left great toe with a dry dressing. He will be placed on cefepime as well as his left great toe is erythematous and swollen due to the concern of worsening osteomyelitis . I will get blood cultures. I will get a vancomycin through at 1800. Patient does report a history of MRSA. Left great toe with swelling redness and warm to the touch. Sutures are intact to left great toe. 3. Generalized fatigue and shortness of breath. This could be related to underlying infection from his osteomyelitis. Again, we will get blood cultures. I will place him on cefepime 2 g q.12 hours. I will also continue his vancomycin at 1250 mg after a vancomycin trough is drawn and then dosing per pharmacy. 4. History of pheochromocytoma. The patient has had his adrenal glands removed. He does take hydrocortisone 20 mg b[address]i.d. I will place him on stress dosing at 50 mg every 8 hours of IV hydrocortisone. 5. Hypomagnesemia. The patient does have hypomagnesemia with a magnesium level of 1.7. He was given 800 mg of magnesium oxide in the emergency room. I will give him 1 g IV and repeat a magnesium level in the a.m. 6. Type 2 diabetes. The patient does have a history of type 2 diabetes. He does take lispro sliding scale at home. I will place him on lispro sliding scale here. I will hold his Tresiba. He will have fingersticks a.c. and h.s. I will also hold his metformin. 7. Hyperlipidemia. The patient will continue on rosuvastatin 20 mg p.o. daily. 8. Depression/anxiety. He should continue on Effexor at 150 mg as previously prescribed. 9. Hypertension. The patient is on valsartan 160 mg p.o. daily. He will continue his valsartan. 10. Chronic back pain. The patient does follow up with Pain Management, Dr. Grey. He is currently on gabapentin 600 mg 3 times a day and levorphanol 1 mg in the a.m. and 2 mg in the p.m. I will consult Dr. Mccain for further recommendations on this medication. 11. FEN: He can have a heart-healthy, no caffeine diet. 12. Code status: He is a full code. 13. DVT prophylaxis: I will place him on Lovenox subcu. TIME SPENT: Time spent on this admission was 60 minutes, greater than half that time was spent at the bedside reviewing events leading thus far to his hospitalization, performing physical exam, and reviewing my plan of care. I have discussed this with my attending Dr. Yumiko Baron; she is in agreement with my plan. CHRYSTAL GRANT NP ADDENDUM: The case was reviewed and discussed with Chrystal Grant NP. Mr. Giraldo is a 64-year-old male with a complex past medical history that includes morbid obesity, hypertension, type 2 diabetes, chronic pain, recent admission to [facility] for toe osteomyelitis requiring amputation and IV vancomycin. The patient receives all his care in the [facility]. He went to see his pain specialist (Dr. Grey) today and he stated that he was not feeling well with complaints of shortness of breath, very tired, chest pressure and when he was seen at wound clinic, he was noted to have difficulty breathing, reason why EMS was called and the patient was brought to our facility for further evaluation. Unfortunately, despite even looking at [facility], we were not able to get significant records from [facility] yet. I do see a note from Dr. Grey's office from 08/18/19 and at that point, there was a mention that he was admitted to [facility] from 08/08/19 to 08/14/19 with part of his big toe on the left amputated, diagnosed with sepsis and MRSA and he was started on vancomycin through a PICC with plan for treatment for 6 weeks. At the time of my interview, the patient states that he is very tired and was not able to volunteer much information. Workup in the emergency room included a CBC with a normal white cell count, a blood gas with a normal CO2 and pH. His chemistry showed a slightly low magnesium and elevated TSH, but no other marked abnormalities. His UA showed only trace leukocyte esterase and 2+ wbc's. A chest x-ray showed pulmonary vascular congestion, an EKG showed a rhythm suggestive of second degree heart block, but it is unclear to me if this is truly a second degree heart block. This was discussed with Cardiology and the plan is to monitor for now. There is no indication for emergent pacemaker. There is concern for sepsis as the patient is being treated for apparent osteomyelitis, but we need to obtain records from [facility] to pinpoint exactly what happened on the admission. We will check CRP. We will continue vancomycin for now and add cefepime as the toe appears to be more erythematous than in the past. His chest pressure may be cardiac event and he does have significant risk factors for coronary artery disease. We will check serial troponins. He will be monitored on telemetry and depending on his clinical condition, he will have pharmacological Myoview stress test in the morning. He is lethargic, but arousable to voice and oriented x3. He is able to tell me that he does not feel well and that he is exhausted. He is on an older opioid ( levorphanol) and there is reported multiple side effects on opioids, so we will request pain consultation with Dr. Mccain to help with his pain management. His opioid use may be playing a role in his lethargy, but I am to revert since he has been on opioids for almost 20 years and I rather monitor him for now than to put him into risk, put him into withdrawal. The recommendations were discussed with Chrystal Grant NP. The patient will be closely monitored in the telemetry unit. YUMIKO Baron MD [id number]/CPS #: [id number]/CPS #: [id number] FRANCES
[2019-09-16] MEDS: HYDROmorphone TAB* 2 MG PO PRN (18:34)
--- NOTE | 2019-09-16 19:32 | CONS ---
CC: Dr. Jacoby Vargas, [place], [place] CARDIOLOGY CONSULTATION: DATE OF CONSULT: 09/15/19 INDICATION FOR CONSULTATION: Abnormal EKG. HISTORY OF PRESENT ILLNESS: The patient is a 64-year-old gentleman with multiple medical problems in cluding adrenal insufficiency secondary to adrenal surgery 30 years ago, diabetes, COPD, sleep apnea, obesity, peripheral vascular disease who was at the pain clinic here in [place] when he reported that he was having chest heaviness and fatigue. He was brought by ambulance to [facility] for these symptoms. On arrival, the patient was awake and alert. He was noted to have an irregular rhy thm on his telemetry strip that was potentially consistent with second-degree heart block type 1. In speaking with the patient, in general, he does not have any specific cardiac symptoms. He denies any angina. He denies any lightheadedness, dizziness, or syncope. The patient states that he has ju st been feeling fatigued and easily falls asleep. The patient does wear a CPAP machine but has not h ad it adjusted for many years and frequently at night he takes it off because it is bothersome to him . PAST MEDICAL HISTORY: Significant for obesity, hypercholesterolemia, hypertension, type 2 diabetes, COPD, osteomyelitis resulting in toe amputation recently, severe neuropathy. The patient is followed by a caisson worker in [place], Dr. Jacoby Vargas. The patient denies an y history of myocardial infarction or significant bradycardia. OUTPATIENT MEDICATIONS: 1. Effexor 150 mg a day. 2. Vancomycin as directed. 3. Diovan 160 mg a day. 4. Flomax 0.4 mg a day. 5. Rapaflo 4 mg a day. 6. Crestor 20 mg a day. 7. Hydrocortisone injection 100 mg IM daily. 8. Glucagon as needed. 9. Metformin 1000 mg b.i.d. 10. Synthroid 275 mcg a day. 11. Insulin as directed. 12. Gabapentin 600 mg 3 times a day. 13. Proscar 5 mg a day. 14. Fenofibrate 145 mg a day. 15. Bumex 4 mg a day. ALLERGIES: FENTANYL, CODEINE, and SERTRALINE. SOCIAL HISTORY: He is . He is currently retired. He denies tobacco or alcohol use. He does not get any regular exercise. FAMILY HISTORY: Significant for cancer. There is no history of early coronary artery disease. REVIEW OF SYSTEMS: Positive for fatigue. Negative for change in weight. Negative for changes in yahir wel or bladder habits. Negative for fevers. Other 12-point review is unremarkable. PHYSICAL EXAM: Height is 6 feet 3 inches, weight 230 pounds. Temperature 97, heart rate is 78, blood pressure 162/92, respiratory rate is 23, oxygen saturation 97% on room air. Sclerae anicteric. Shaun pharynx is pink without erythema. Carotids are 2+ without bruits. JVD is normal. Thyroid is normal . Cardiac Exam: Distant heart sounds. S1, S2 without any murmurs, rubs, or gallops. Lungs are maria eugenia ar to auscultation bilaterally. There is no dullness to percussion. Abdomen is obese, soft, nontend er, nondistended, with normoactive bowel sounds. Extremities show 1+ edema. He has poor pulses in d orsalis pedis and popliteal. The patient is awake, alert, and oriented. He moves all 4 extremities e qually. LABORATORY DATA: Chemistry is within normal limits. BUN 24, creatinine 0.8. AST and ALT are normal . TSH 7.24. BNP is 45. Troponins are negative x2. White count 7.4, hemoglobin 11, platelet count 208. EKG as described above. On telemetry on first arrival on the floor, he was in normal sinus rhythm. IMPRESSION: This is a 64-year-old gentleman with multiple medical problems including diabetes, adren al insufficiency, hypothyroidism who comes in because of fatigue and some chest heaviness. The patient's initial EKG does not show any ST-T wave abnormalities; however, it does show occasional pauses, which could be consistent with block PACs versus second-degree heart block type 1. It is di fficult to tell just from the EKG. Again, his telemetry strip shows normal sinus rhythm. For now, my recommendation is just observe the patient on telemetry overnight. The patient does stat e that 2 years ago he was "very septic" and during that time he had some degree of cardiac arrhythmia but has not had any evidence of it since then. The patient will get an echocardiogram. At this point, I do not think any medication changes are necessary. Further recommendations pending the results of his echocardiogram and telemetry. [id number]/[facility] #: [id number]
[2019-09-16] MEDS ORDERED: Magnesium Sulfate 1 GM IV* 1 GM/100 ML BAG IV ONE (19:41)
[2019-09-16] MEDS ORDERED: Vancomycin per Pharmacy* NOTE FOLLOW UP SCH (20:00)
[2019-09-16] MEDS ORDERED: Atorvastatin* 40 MG TAB PO SCH (21:00)
[2019-09-16] MEDS ORDERED: Hydrocortisone TAB* 10 MG PO SCH (21:00)
[2019-09-16] MEDS: Gabapentin CAP(*) 300 MG PO SCH (21:13)
[2019-09-16] MEDS: Acetaminophen TAB* 325 MG PO PRN (22:09)
[2019-09-16] MEDS: Vancomycin(*) 1,250 MG in NS 0.9% 250 ML* 250 ML IVPB SCH (22:39)
[2019-09-17] MEDS: Hydrocortisone INJ* 100 MG/2 ML VIAL (in pyxis) IV SCH ×3 (03:06→17:55)
[2019-09-17] MEDS: HYDROmorphone TAB* 2 MG PO PRN ×2 (03:06→12:01)
[2019-09-17] MEDS: Acetaminophen TAB* 325 MG PO PRN (05:44)
[2019-09-17] MEDS: Cefepime 2 GM in Dextrose(*) 2 GM/50 ML BAG IV SCH ×2 (05:45→18:10)
[2019-09-17] MEDS ORDERED: Levothyroxine TAB* 175 MCG TAB PO SCH (06:00)
[2019-09-17] MEDS ORDERED: Levothyroxine TAB* 100 MCG TAB PO SCH (06:00)
[2019-09-17 06:17] LABS: Hematocrit 32 % (42-52); Hemoglobin 10.8 g/dL (14.0-18.0); Mean Corpuscular HGB Conc 33 g/dL (31-36); Mean Corpuscular Hemoglobin 28 pg (27-31); Mean Corpuscular Volume 85 fL (80-94); Mean Platelet Volume 8.7 fL (7.4-10.4); Platelet Count 209 10^3/uL (150-450); Red Blood Count 3.82 10^6 /uL (4.18-5.48); Red Cell Distribution Width 18 % (10-15); White Blood Count 8.2 10^3/uL (3.5-10.8)
[2019-09-17 06:36] LABS: BUN/Creatinine Ratio 34.1 (8-20); Calcium 9.5 mg/dL (8.6-10.3); EGFR African American 109.5 (>60); EGFR Non-African American 90.5 (>60); Potassium 4.5 mmol/L (3.5-5.0)
[2019-09-17 06:42] LABS: Polychromasia 1+
[2019-09-17 06:49] LABS: ABS Lymphocytes 0.9 10^3/ul (1.0-4.8); ABS Monocytes 0.3 10^3/ul (0-0.8); ABS Neutrophils 6.9 10^3/ul (1.5-7.7); Eosinophil % 0.4 %; Lymphocyte % 11.3 %
[2019-09-17] MEDS ORDERED: Bumetanide TAB* 2 MG PO SCH (09:00)
[2019-09-17] MEDS ORDERED: [UNRECOGNIZED DRUG - OTHER] IV SCH (09:00)
[2019-09-17] MEDS ORDERED: Fenofibrate(NF) 145 MG TAB PO SCH (09:00)
[2019-09-17] MEDS ORDERED: Venlafaxine EXT RELEASE CAP* 75 MG PO SCH (09:00)
[2019-09-17] MEDS ORDERED: DEXTROSE IV SCH (09:00)
[2019-09-17] MEDS ORDERED: VANCOMYCIN HCL IV SCH (09:00)
[2019-09-17] MEDS ORDERED: Dronabinol CAP* 2.5 MG PO SCH (09:00)
[2019-09-17] MEDS ORDERED: Valsartan TAB* 160 MG PO SCH (09:00)
[2019-09-17] MEDS ORDERED: Tamsulosin CAP* 0.4 MG PO SCH (09:00)
[2019-09-17] MEDS ORDERED: Finasteride TAB* 5 MG PO SCH (09:00)
[2019-09-17] MEDS: Gabapentin CAP(*) 300 MG PO SCH ×2 (09:30→13:00)
[2019-09-17] MEDS: Vancomycin(*) 1,250 MG in NS 0.9% 250 ML* 250 ML IVPB SCH (09:32)
[2019-09-17] MEDS: Insulin LISPRO* 1 UNITS UNIT SUBCUT SCH ×3 (09:33→17:56)
--- NOTE | 2019-09-17 09:44 | ECHO ---
*[facility]* [place] [id number] Fax #: [phone] Transthoracic Echocardiogram Patient: Mele Giraldo : 1955 Study Date: 09/17/2019 Age: 64 Gender: M HR: 70 bpm Height: 75 in /190.5 cm BSA: 2.68 m^2 Weight: 319.3 lb /145.2 kg BMI: 40 kg/m^2 *7Th Grade Teacher: Nighat Hess *Referring Physician: * Chrystal Grant *Reading Physician: * Liat Moncada MD Indications: Abnormal EKG. History: Risk factors: COPD. Former tobacco use. Hypertension. Diabetes mellitus. Morbidly obese. Dyslipidemia. Conclusions Summary: - Left ventricle: The cavity size is normal. Wall thickness is moderately increased. Systolic function is vigorous. The estimated ejection fraction is 60-65%. - Right ventricle: Systolic function is normal. - All valves show good excursioin, appear structurally normal. - Mitral valve: There is trace to mild regurgitation. - Pulmonary arteries: Systolic pressure can not be accurately estimated. - No prior echocardiogram to compare. Study data: Transthoracic echocardiogram. Procedure: Transthoracic echocardiography was performed. Image quality was adequate. The study was technically limited due to body habitus. Complete 2D, spectral Doppler, and color flow Doppler. Location: Bedside. Patient status: Inpatient. Patient room number: 444-2. Rhythm: Heart block. Findings Left ventricle: The cavity size is normal. Wall thickness is moderately increased. Systolic function is vigorous. The estimated ejection fraction is 60-65%. Wall motion is normal; there are no regional wall motion abnormalities. Left ventricular diastolic function parameters are normal. Right ventricle: The cavity size is mildly to moderately dilated. Wall thickness is normal. Systolic function is normal. Ventricular septum: The ventricular septum is normal. Left atrium: The atrium is normal in size. Right atrium: The atrium is at the upper limits of normal in size. Mitral valve: The valve is structurally normal. There is no evidence of stenosis. There is trace to mild regurgitation. Aortic valve: Not well visualized. The valve is probably trileaflet. The leaflets are normal thickness. Cusp separation is normal. There is no evidence of stenosis. There is no significant regurgitation. Tricuspid valve: The valve is structurally normal. There is no evidence of stenosis. There is trace regurgitation. Pulmonic valve: The valve is structurally normal. There is no evidence of stenosis. There is trace regurgitation. Aorta: The aortic root appears normal. The aortic arch appears normal. Pericardium: There is no significant pericardial effusion. Pulmonary arteries: Systolic pressure can not be accurately estimated. Systemic veins: Inferior vena cava: Not well visualized. Pulmonary veins: The Pulmonary veins appear normal. Measurements Left ventricle Value Ref Right atrium Value Ref REJI, LAX 5.5 cm 4.2 - SI dim, ES (H) 5.5 cm 3.4 - 5.3 5.8 ML dim, ES, A4C 4.1 cm 2.6 - 4.4 ESD, LAX 3.5 cm 2.5 - SI dim, ES, A4C (H) 5.5 cm 3.4 - 5.3 4.0 FS, LAX 36 % Aortic valve Value Ref PW, ED, LAX (H) 1.6 cm 0.6 - Peak v, S 1.38 m/sec --------- 1.0 VTI, S 30.5 cm --------- FS 36 % 25 Mean grad, S 5.0 mm Hg --------- Mid-wall FS 13 % -------- Peak grad, S 8.0 mm Hg --------- PW, ED (H) 1.6 cm 0.6 - KEREN, VTI 3.67 cm^2 --------- 1.0 KEREN, Vmax 2.89 cm^2 --------- PW/ID, ED 0.3 -------- E', lat lili, TDI 12.1 cm/sec >=10.0 Mitral valve Value Ref E/e', lat lili, TDI 10 -------- Peak E 1.16 m/sec -------- - E', med lili, TDI 10.8 cm/sec >=7.0 Decel time 216 ms ----- ---- E/e', med lili, TDI 11 -------- Peak grad, D 5.4 mm Hg -------- - E', avg, TDI 11.5 cm/sec -------- E/e', avg, TDI 10 <=14 Pulmonic valve Value Ref Peak v, S 0.97 m/sec --------- LVOT Value Ref Peak grad, S 4.0 mm Hg --------- Diam, S 2.00 cm -------- Area 3.1 cm^2 -------- Aortic root Value Ref Peak julia, S 1.27 m/sec -------- Root diam 3.7 cm <4.6 Peak grad, S 6 mm Hg -------- Mean grad, S 4 mm Hg -------- Ascending aorta Value Ref SV 112 ml -------- AAo AP diam, S 3.3 cm --------- Ventricular septum Value Ref Aortic arch Value Ref IVS, ED (H) 1.5 cm 0.6 - Arch diam 3.2 cm --------- 1.0 Decending aorta Value Ref Right ventricle Value Ref Jody peak julia 0.9 m/sec --------- REJI, LAX 4.6 cm -------- REJI minor ax, A4C (H) 4.1 cm 1.9 - mid 3.5 Left atrium Value Ref ML dim, A4C 4.8 cm -------- SI dim, A4C 6.0 cm -------- Vol/bsa, ES, 1-p 30 ml/m^2 12 - 37 A4C Vol/bsa, ES, A/L 34 ml/m^2 16 - 34 Legend: (L) and (H) melany values outside specified reference range. Prepared and electronically signed by Liat Moncada MD 09/17/2019 09:43
--- NOTE | 2019-09-17 09:51 | PN ---
<MaheshCharlene - Last Filed: 09/17/19 11:30> Subjective Date of Service: 09/17/19 - lightheadedness, ? second degree AVB Interval History: No events last night, patient has been up and ambulating to bathroom. is at his bedside. He denies chest pain. reports sensation of not being able to get a deep breath. No recurrent dizziness since presentation. No palpations. States he feels better today. Medications Active Medications: Acetaminophen (Tylenol Tab*) 650 mg PO Q4H PRN PRN Reason: MILD PAIN or TEMP > 100.4 Last Admin: 09/17/19 05:44 Dose: 650 mg Albuterol/Ipratropium (Duoneb (Albuterol 2.5 Mg/Ipratropium 0.5 Mg)) 1 neb INH QID PRN PRN Reason: SOB/WHEEZING Atorvastatin Calcium (Lipitor*) 40 mg PO BEDTIME [facility] Last Admin: 09/16/19 21:13 Dose: 40 mg Bumetanide (Bumex Tab*) 4 mg PO DAILY [facility] Last Admin: 09/17/19 09:30 Dose: 4 mg Dextrose (D50w Syringe 50 Ml*) 12.5 gm IV PUSH .FOR FS < 60 - SS PRN PRN Reason: FS < 60 Dronabinol (Marinol Cap*) 5 mg PO QAM [facility] Last Admin: 09/17/19 09:31 Dose: 5 mg Dronabinol (Marinol Cap*) 10 mg PO QPM [facility] Last Admin: 09/16/19 17:26 Dose: 10 mg Enoxaparin Sodium (Lovenox(*)) 40 mg SUBCUT Q24H [facility] Last Admin: 09/16/19 17:25 Dose: 40 mg Finasteride (Proscar Tab*) 5 mg PO DAILY [facility] Last Admin: 09/17/19 09:30 Dose: 5 mg Gabapentin (Neurontin Cap(*)) 600 mg PO TID [facility] Last Admin: 09/17/19 09:30 Dose: 600 mg Heparin Sodium (Porcine) (Heparin Flush Picc/Ml/Cvc(*)) 1 ml FLUSH 0600,1800 [facility]; Protocol Last Admin: 09/17/19 07:14 Dose: 1 ml Hydrocortisone Sodium Succinate (Solu-Cortef*) 50 mg IV Q8H [facility] Last Admin: 09/17/19 09:32 Dose: 50 mg Hydromorphone HCl (Dilaudid Tab*) 2 mg PO Q6H PRN PRN Reason: PAIN - SEVERE Last Admin: 09/17/19 03:06 Dose: 2 mg Cefepime HCl (Maxipime 2 Gm In Dextrose Duplex (*)) 2 gm in 50 mls @ 100 mls/ hr IV Q12H [facility] Last Admin: 09/17/19 05:45 Dose: 100 mls/hr Vancomycin HCl 1,250 mg/ (Sodium Chloride) 250 mls @ 166.667 mls/hr IVPB Q12H [facility]; Protocol Last Admin: 09/17/19 09:32 Dose: 166.667 mls/hr Insulin Human Lispro (Humalog*) 0 units SUBCUT ACHS [facility]; Protocol Last Admin: 09/17/19 09:33 Dose: Not Given Levothyroxine Sodium (Synthroid Tab*) 100 mcg PO DAILY@0600 [facility] Last Admin: 09/17/19 07:14 Dose: 100 mcg Levothyroxine Sodium (Synthroid Tab*) 175 mcg PO DAILY@0600 [facility] Last Admin: 09/17/19 07:14 Dose: 175 mcg Pharmacy Consult (Vancomycin Per Pharmacy*) 1 note FOLLOW UP .VANC PER PHARMACY [facility]; Protocol Pharmacy Profile Note (Vancomycin Trough Check) 1 note FOLLOW UP 0600 ONE Stop: 09/18/19 06:01 Tamsulosin HCl (Flomax Cap*) 0.4 mg PO DAILY [facility] Last Admin: 09/17/19 09:31 Dose: 0.4 mg Valsartan (Diovan Tab*) 160 mg PO DAILY [facility] Last Admin: 09/17/19 09:30 Dose: 160 mg Venlafaxine HCl (Effexor Xr Cap*) 150 mg PO DAILY [facility] Last Admin: 09/17/19 09:31 Dose: 150 mg Objective Vital Signs: Temp Pulse Resp BP Pulse Ox 98.4 F 76 17 132/43 97 09/17/19 08:39 09/17/19 08:39 09/17/19 09:31 09/17/19 08:39 09/17/19 08:39 Oxygen Devices in Use Now: Nasal Cannula Appearance: Pleasant, A+ O x3, NAD. Cooperative Ears/Nose/Mouth/Throat: NL Teeth, Lips, Gums, Clear Oropharnyx, Mucous Membranes Moist Neck: Trachea Midline, - - uncertain JVD. Respiratory: Symmetrical Chest Expansion and Respiratory Effort, Clear to Auscultation Cardiovascular: No Edema, - - Normal S1, S2, RRR no murmur or gallop /rub Neurological: Alert and Oriented x 3 Lines/Tubes/Other Access: Clean, Dry and Intact Peripheral IV Laboratory Results: 09/17/19 06:00 09/17/19 06:00 INR (Anticoag Therapy) 1.09 (0.82-1.09) 09/16/19 12:25 APTT 35.0 seconds (26.0-38.0) 09/16/19 12:25 Total Bilirubin 0.40 mg/dL (0.2-1.0) 09/16/19 12:25 AST 35 U/L (13-39) 09/16/19 12:25 ALT 31 U/L (7-52) 09/16/19 12:25 Alkaline Phosphatase 80 U/L (34-104) 09/16/19 12:25 CK-MB (CK-2) 12.7 ng/mL (0.6-6.3) H 09/16/19 12:25 B-Natriuretic Peptide 45 pg/mL (<=100) 09/16/19 12:25 Total Protein 7.1 g/dL (6.4-8.9) 09/16/19 12:25 Albumin 4.1 g/dL (3.2-5.2) 09/16/19 12:25 Globulin 3.0 g/dL (2-4) 09/16/19 12:25 Albumin/Globulin Ratio 1.4 (1-3) 09/16/19 12:25 TSH 7.24 mcIU/mL (0.34-5.60) H 09/16/19 12:25 09/16/19 09/16/19 09/16/19 12:25 15:05 19:25 Troponin I 0.01 0.01 0.01 Laboratory Results - last 24 hr 09/16/19 09/16/19 09/16/19 12:25 12:25 12:25 WBC 7.4 RBC 4.07 L Hgb 11.3 L Hct 35 L MCV 85 MCH 28 MCHC 33 RDW 18 H Plt Count 208 MPV 8.4 Neut % (Auto) 56.6 Lymph % (Auto) 31.9 Parker % (Auto) 7.7 Eos % (Auto) 3.2 Baso % (Auto) 0.6 Absolute Neuts (auto) 4.2 Absolute Lymphs (auto) 2.4 Absolute Monos (auto) 0.6 Absolute Eos (auto) 0.2 Absolute Basos (auto) 0.0 Absolute Nucleated RBC 0.0 Neutrophils % Lymphocytes % Monocytes % Nucleated RBC % 0.0 Normal RBC Morphology Polychromasia Hypochromasia INR (Anticoag Therapy) APTT ABG pH ABG pCO2 ABG pO2 ABG HCO3 ABG O2 Saturation ABG Base Excess Sodium 137 Potassium 4.4 Chloride 104 Carbon Dioxide 27 Anion Gap 6 BUN 24 Creatinine 0.82 Est GFR ( Amer) 114.1 Est GFR (Non-Af Amer) 94.3 BUN/Creatinine Ratio 29.3 H Glucose 108 H POC Glucose (mg/dL) Lactic Acid 1.4 Calcium 9.9 Magnesium 1.7 L Total Bilirubin 0.40 AST 35 ALT 31 Alkaline Phosphatase 80 Total Creatine Kinase 210 CK-MB (CK-2) 12.7 H Troponin I 0.01 C-Reactive Protein 4.09 B-Natriuretic Peptide Total Protein 7.1 Albumin 4.1 Globulin 3.0 Albumin/Globulin Ratio 1.4 TSH 7.24 H Urine Color Urine Appearance Urine pH Ur Specific Gilbert Urine Protein Urine Ketones Urine Blood Urine Nitrate Urine Bilirubin Urine Urobilinogen Ur Leukocyte Esterase Urine WBC (Auto) Urine RBC (Auto) Urine Bacteria Urine Glucose Blood Type Antibody Screen 09/16/19 09/16/19 09/16/19 12:25 12:25 12:25 WBC RBC Hgb Hct MCV MCH MCHC RDW Plt Count MPV Neut % (Auto) Lymph % (Auto) Parker % (Auto) Eos % (Auto) Baso % (Auto) Absolute Neuts (auto) Absolute Lymphs (auto) Absolute Monos (auto) Absolute Eos (auto) Absolute Basos (auto) Absolute Nucleated RBC Neutrophils % Lymphocytes % Monocytes % Nucleated RBC % Normal RBC Morphology Polychromasia Hypochromasia INR (Anticoag Therapy) 1.09 APTT 35.0 ABG pH ABG pCO2 ABG pO2 ABG HCO3 ABG O2 Saturation ABG Base Excess Sodium Potassium Chloride Carbon Dioxide Anion Gap BUN Creatinine Est GFR ( Amer) Est GFR (Non-Af Amer) BUN/Creatinine Ratio Glucose POC Glucose (mg/dL) Lactic Acid Calcium Magnesium Total Bilirubin AST ALT Alkaline Phosphatase Total Creatine Kinase CK-MB (CK-2) Troponin I C-Reactive Protein B-Natriuretic Peptide 45 Total Protein Albumin Globulin Albumin/Globulin Ratio TSH Urine Color Urine Appearance Urine pH Ur Specific Gilbert Urine Protein Urine Ketones Urine Blood Urine Nitrate Urine Bilirubin Urine Urobilinogen Ur Leukocyte Esterase Urine WBC (Auto) Urine RBC (Auto) Urine Bacteria Urine Glucose Blood Type A Positive Antibody Screen Negative 09/16/19 09/16/19 09/16/19 13:11 13:15 13:55 WBC RBC Hgb Hct MCV MCH MCHC RDW Plt Count MPV Neut % (Auto) Lymph % (Auto) Parker % (Auto) Eos % (Auto) Baso % (Auto) Absolute Neuts (auto) Absolute Lymphs (auto) Absolute Monos (auto) Absolute Eos (auto) Absolute Basos (auto) Absolute Nucleated RBC Neutrophils % Lymphocytes % Monocytes % Nucleated RBC % Normal RBC Morphology Polychromasia Hypochromasia INR (Anticoag Therapy) APTT ABG pH 7.42 ABG pCO2 43 ABG pO2 102 H ABG HCO3 27.2 ABG O2 Saturation 97.6 ABG Base Excess 2.9 H Sodium Potassium Chloride Carbon Dioxide Anion Gap BUN Creatinine Est GFR ( Amer) Est GFR (Non-Af Amer) BUN/Creatinine Ratio Glucose POC Glucose (mg/dL) 115 H Lactic Acid Calcium Magnesium Total Bilirubin AST ALT Alkaline Phosphatase Total Creatine Kinase CK-MB (CK-2) Troponin I C-Reactive Protein B-Natriuretic Peptide Total Protein Albumin Globulin Albumin/Globulin Ratio TSH Urine Color Straw Urine Appearance Clear Urine pH 7.0 Ur Specific Gilbert 1.010 Urine Protein Negative Urine Ketones Negative Urine Blood Negative Urine Nitrate Negative Urine Bilirubin Negative Urine Urobilinogen Negative Ur Leukocyte Esterase Trace A Urine WBC (Auto) 2+(11-20/hpf) A Urine RBC (Auto) Trace(0-2/hpf) Urine Bacteria Absent Urine Glucose Negative Blood Type Antibody Screen 09/16/19 09/16/19 09/16/19 15:05 16:41 19:25 WBC RBC Hgb Hct MCV MCH MCHC RDW Plt Count MPV Neut % (Auto) Lymph % (Auto) Parker % (Auto) Eos % (Auto) Baso % (Auto) Absolute Neuts (auto) Absolute Lymphs (auto) Absolute Monos (auto) Absolute Eos (auto) Absolute Basos (auto) Absolute Nucleated RBC Neutrophils % Lymphocytes % Monocytes % Nucleated RBC % Normal RBC Morphology Polychromasia Hypochromasia INR (Anticoag Therapy) APTT ABG pH ABG pCO2 ABG pO2 ABG HCO3 ABG O2 Saturation ABG Base Excess Sodium Potassium Chloride Carbon Dioxide Anion Gap BUN Creatinine Est GFR ( Amer) Est GFR (Non-Af Amer) BUN/Creatinine Ratio Glucose POC Glucose (mg/dL) 165 H Lactic Acid Calcium Magnesium Total Bilirubin AST ALT Alkaline Phosphatase Total Creatine Kinase CK-MB (CK-2) Troponin I 0.01 0.01 C-Reactive Protein B-Natriuretic Peptide Total Protein Albumin Globulin Albumin/Globulin Ratio TSH Urine Color Urine Appearance Urine pH Ur Specific Gilbert Urine Protein Urine Ketones Urine Blood Urine Nitrate Urine Bilirubin Urine Urobilinogen Ur Leukocyte Esterase Urine WBC (Auto) Urine RBC (Auto) Urine Bacteria Urine Glucose Blood Type Antibody Screen 09/16/19 09/17/19 09/17/19 21:13 06:00 06:00 WBC 8.2 RBC 3.82 L Hgb 10.8 L Hct 32 L MCV 85 MCH 28 MCHC 33 RDW 18 H Plt Count 209 MPV 8.7 Neut % (Auto) 84.5 Lymph % (Auto) 11.3 Parker % (Auto) 3.3 Eos % (Auto) 0.4 Baso % (Auto) 0.5 Absolute Neuts (auto) 6.9 Absolute Lymphs (auto) 0.9 L Absolute Monos (auto) 0.3 Absolute Eos (auto) 0.0 Absolute Basos (auto) 0.0 Absolute Nucleated RBC 0.0 Neutrophils % 85.0 Lymphocytes % 9.0 Monocytes % 6.0 Nucleated RBC % 0.0 Normal RBC Morphology Not Reportable Polychromasia 1+ Hypochromasia 1+ INR (Anticoag Therapy) APTT ABG pH ABG pCO2 ABG pO2 ABG HCO3 ABG O2 Saturation ABG Base Excess Sodium 135 Potassium 4.5 Chloride 101 Carbon Dioxide 26 Anion Gap 8 BUN 29 H Creatinine 0.85 Est GFR ( Amer) 109.5 Est GFR (Non-Af Amer) 90.5 BUN/Creatinine Ratio 34.1 H Glucose 258 H POC Glucose (mg/dL) 299 H Lactic Acid Calcium 9.5 Magnesium Total Bilirubin AST ALT Alkaline Phosphatase Total Creatine Kinase CK-MB (CK-2) Troponin I C-Reactive Protein B-Natriuretic Peptide Total Protein Albumin Globulin Albumin/Globulin Ratio TSH Urine Color Urine Appearance Urine pH Ur Specific Gilbert Urine Protein Urine Ketones Urine Blood Urine Nitrate Urine Bilirubin Urine Urobilinogen Ur Leukocyte Esterase Urine WBC (Auto) Urine RBC (Auto) Urine Bacteria Urine Glucose Blood Type Antibody Screen 09/17/19 07:45 WBC RBC Hgb Hct MCV MCH MCHC RDW Plt Count MPV Neut % (Auto) Lymph % (Auto) Parker % (Auto) Eos % (Auto) Baso % (Auto) Absolute Neuts (auto) Absolute Lymphs (auto) Absolute Monos (auto) Absolute Eos (auto) Absolute Basos (auto) Absolute Nucleated RBC Neutrophils % Lymphocytes % Monocytes % Nucleated RBC % Normal RBC Morphology Polychromasia Hypochromasia INR (Anticoag Therapy) APTT ABG pH ABG pCO2 ABG pO2 ABG HCO3 ABG O2 Saturation ABG Base Excess Sodium Potassium Chloride Carbon Dioxide Anion Gap BUN Creatinine Est GFR ( Amer) Est GFR (Non-Af Amer) BUN/Creatinine Ratio Glucose POC Glucose (mg/dL) 281 H Lactic Acid Calcium Magnesium Total Bilirubin AST ALT Alkaline Phosphatase Total Creatine Kinase CK-MB (CK-2) Troponin I C-Reactive Protein B-Natriuretic Peptide Total Protein Albumin Globulin Albumin/Globulin Ratio TSH Urine Color Urine Appearance Urine pH Ur Specific Gilbert Urine Protein Urine Ketones Urine Blood Urine Nitrate Urine Bilirubin Urine Urobilinogen Ur Leukocyte Esterase Urine WBC (Auto) Urine RBC (Auto) Urine Bacteria Urine Glucose Blood Type Antibody Screen Diagnostic Imaging: Echo 09/17/2019 is pending. EKG Data: telemetry reviewed. Sinus rhythm rate 80's. No high degree AVB seen overnight. ECG 09/16/19; Sinus rhythm rate 871st degree AVB with IVCD. Assessment/Plan #1 c/o dizziness, with SOB; BNP normal. 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 I have asked that they fax ECG. He had a low risk stress test 03/2019( verbally informed by Dr. Vargas's nurse). There was concern for ? second degree AVB on 09/16/19 however, there has been no evidence of high degree AVB on telemetry. Echo is pending. #2 c/o Fatigue with generalized weakness; Patient reports improvement in symptoms since admission. Blood cultures are pending. On IV antibiotics due to known osteomyelitis with recent amputation involving left toe. Primary team managing. #3 h/o HTN; BP 132/43. controlled today. #4 Disposition pending course. Await echo. Patient would benefit from outpatient ambulatory monitor with close follow up. ( follows Dr. Vargas) Attending: Liat Moncada <Liat Moncada - Last Filed: 09/17/19 12:46> Medications Active Medications: Acetaminophen (Tylenol Tab*) 650 mg PO Q4H PRN PRN Reason: MILD PAIN or TEMP > 100.4 Last Admin: 09/17/19 05:44 Dose: 650 mg Albuterol/Ipratropium (Duoneb (Albuterol 2.5 Mg/Ipratropium 0.5 Mg)) 1 neb INH QID PRN PRN Reason: SOB/WHEEZING Atorvastatin Calcium (Lipitor*) 40 mg PO BEDTIME [facility] Last Admin: 09/16/19 21:13 Dose: 40 mg Bumetanide (Bumex Tab*) 4 mg PO DAILY [facility] Last Admin: 09/17/19 09:30 Dose: 4 mg Dextrose (D50w Syringe 50 Ml*) 12.5 gm IV PUSH .FOR FS < 60 - SS PRN PRN Reason: FS < 60 Dronabinol (Marinol Cap*) 5 mg PO QAM [facility] Last Admin: 09/17/19 09:31 Dose: 5 mg Dronabinol (Marinol Cap*) 10 mg PO QPM [facility] Last Admin: 09/16/19 17:26 Dose: 10 mg Enoxaparin Sodium (Lovenox(*)) 40 mg SUBCUT Q24H [facility] Last Admin: 09/16/19 17:25 Dose: 40 mg Finasteride (Proscar Tab*) 5 mg PO DAILY [facility] Last Admin: 09/17/19 09:30 Dose: 5 mg Gabapentin (Neurontin Cap(*)) 600 mg PO TID [facility] Last Admin: 09/17/19 09:30 Dose: 600 mg Heparin Sodium (Porcine) (Heparin Flush Picc/Ml/Cvc(*)) 1 ml FLUSH 0600,1800 [facility]; Protocol Last Admin: 09/17/19 07:14 Dose: 1 ml Hydrocortisone Sodium Succinate (Solu-Cortef*) 50 mg IV Q8H [facility] Last Admin: 09/17/19 09:32 Dose: 50 mg Hydromorphone HCl (Dilaudid Tab*) 2 mg PO Q6H PRN PRN Reason: PAIN - SEVERE Last Admin: 09/17/19 12:01 Dose: 2 mg Cefepime HCl (Maxipime 2 Gm In Dextrose Duplex (*)) 2 gm in 50 mls @ 100 mls/ hr IV Q12H [facility] Last Admin: 09/17/19 05:45 Dose: 100 mls/hr Vancomycin HCl 1,250 mg/ (Sodium Chloride) 250 mls @ 166.667 mls/hr IVPB Q12H [facility]; Protocol Last Admin: 09/17/19 09:32 Dose: 166.667 mls/hr Insulin Human Lispro (Humalog*) 0 units SUBCUT ACHS [facility]; Protocol Last Admin: 09/17/19 09:33 Dose: Not Given Levothyroxine Sodium (Synthroid Tab*) 100 mcg PO DAILY@0600 [facility] Last Admin: 09/17/19 07:14 Dose: 100 mcg Levothyroxine Sodium (Synthroid Tab*) 175 mcg PO DAILY@0600 [facility] Last Admin: 09/17/19 07:14 Dose: 175 mcg Pharmacy Consult (Vancomycin Per Pharmacy*) 1 note FOLLOW UP .VANC PER PHARMACY [facility]; Protocol Pharmacy Profile Note (Vancomycin Trough Check) 1 note FOLLOW UP 0600 ONE Stop: 09/18/19 06:01 Tamsulosin HCl (Flomax Cap*) 0.4 mg PO DAILY [facility] Last Admin: 09/17/19 09:31 Dose: 0.4 mg Valsartan (Diovan Tab*) 160 mg PO DAILY [facility] Last Admin: 09/17/19 09:30 Dose: 160 mg Venlafaxine HCl (Effexor Xr Cap*) 150 mg PO DAILY [facility] Last Admin: 09/17/19 09:31 Dose: 150 mg Objective Vital Signs: Temp Pulse Resp BP Pulse Ox 98.4 F 76 19 132/43 97 09/17/19 08:39 09/17/19 08:39 09/17/19 12:03 09/17/19 08:39 09/17/19 08:39 Laboratory Results: 09/17/19 06:00 09/17/19 06:00 INR (Anticoag Therapy) 1.09 (0.82-1.09) 09/16/19 12:25 APTT 35.0 seconds (26.0-38.0) 09/16/19 12:25 Total Bilirubin 0.40 mg/dL (0.2-1.0) 09/16/19 12:25 AST 35 U/L (13-39) 09/16/19 12:25 ALT 31 U/L (7-52) 09/16/19 12:25 Alkaline Phosphatase 80 U/L (34-104) 09/16/19 12:25 CK-MB (CK-2) 12.7 ng/mL (0.6-6.3) H 09/16/19 12:25 B-Natriuretic Peptide 45 pg/mL (<=100) 09/16/19 12:25 Total Protein 7.1 g/dL (6.4-8.9) 09/16/19 12:25 Albumin 4.1 g/dL (3.2-5.2) 09/16/19 12:25 Globulin 3.0 g/dL (2-4) 09/16/19 12:25 Albumin/Globulin Ratio 1.4 (1-3) 09/16/19 12:25 TSH 7.24 mcIU/mL (0.34-5.60) H 09/16/19 12:25 09/16/19 09/16/19 09/16/19 12:25 15:05 19:25 Troponin I 0.01 0.01 0.01 Diagnostic Imaging: *[facility]* [place] [address] Fax #: [phone] Transthoracic Echocardiogram Patient: Mele Mobley : 1955 Study Date: 09/17/2019 Age: 64 Gender: M HR: 70 bpm Height: 75 in /190.5 cm BSA: 2.68 m^2 Weight: 319.3 lb /145.2 kg BMI: 40 kg/m^2 *Bench Shear Operator: * Nighat Bowden *Referring Physician: * Chrystal Grant *Reading Physician: * Liat Moncada MD Indications: Abnormal EKG. History: Risk factors: COPD. Former tobacco use. Hypertension. Diabetes mellitus. Morbidly obese. Dyslipidemia. Conclusions Summary: - Left ventricle: The cavity size is normal. Wall thickness is moderately increased. Systolic function is vigorous. The estimated ejection fraction is 60-65%. - Right ventricle: Systolic function is normal. - All valves show good excursioin, appear structurally normal. - Mitral valve: There is trace to mild regurgitation. - Pulmonary arteries: Systolic pressure can not be accurately estimated. - No prior echocardiogram to compare. CXR: Patient Name: MELE MOBLEY Medical Record#: [id number] Ordering Physician: Ab Angel MD Acct.#: [id number] : 1955 Age: 64 Sex: M Location: EMERGENCY DEPARTMENT Exam Date: 09/16/19 121 ADM Status: REG ER Order Information: CHEST AP/PORT Accession Number: [id number] CPT: 93624 HISTORY: CP chest pain COMPARISONS: None relevant available at the time of dictation. VIEWS: 1: frontal AP view of the chest at 1:23 PM FINDINGS: LINES AND TUBES: None. CARDIOMEDIASTINAL SILHOUETTE: The cardiomediastinal silhouette is normal for portable technique. PLEURA: The costophrenic angles are sharp. No pleural abnormalities are noted. LUNG PARENCHYMA: There is prominence of the central pulmonary vasculature. ABDOMEN: The upper abdomen is clear. There is no subphrenic gas. BONES AND SOFT TISSUES: No bone or soft tissue abnormalities are noted. IMPRESSION: PULMONARY VASCULAR CONGESTION. Assessment/Plan I saw and examined the patient personally, his was present. The patient had trouble taking a deep breath and felt generally poorly. CXR c/w CHF. He does not use his inhalers regularly. Hx included difficulties with a new CPAP at home recently. 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 Echo showed hyperdynamic ventricular function, no significant valvular abnormalities. Troponins negative. BP on arrival was high, normal now. Interestingly, the patient improved clinically with no change in diuretics, with increase in steroid replacement ( IV solumedrol). Multiple commorbidities including morbid obesity, DM, adrenal insufficieny, PELON , hypothyroid with mild elevation TSH, Osteomyelitis with recent toe ambutation on Vanco, chronic pain and more . Agree with the above, follow up with his usual manager enrollment, possible event monitor to ensure no dysrhythmias contributing. CPAP may need adjusting as well. Daily weights if able to follow fluid status while getting antibiotics might be helpful, at risk for diastolic CHF. Avoid excessive salt, NSAIDs.
[2019-09-17 12:22] LABS: Urine Benzodiazepine Screen None Detected (None Detect); Urine Opiates Screen None Detected (None Detect)
[2019-09-17] MEDS: Enoxaparin(*) 40 MG/0.4 ML SYR SUBCUT SCH (17:57)
[2019-09-17] MEDS: Dronabinol CAP* 2.5 MG PO SCH (18:02)
[2019-09-17 20:02] VITALS: BP 108/53
--- NOTE | 2019-09-17 21:17 | DS ---
CC: TAMARA Bowens at [place] * DISCHARGE SUMMARY: DATE OF ADMISSION: 09/16/19 DATE OF DISCHARGE: 09/17/19 PRINCIPAL DISCHARGE DIAGNOSES: 1. Shortness of breath. 2. Wenckebach. SECONDARY DISCHARGE DIAGNOSES: 1. Osteomyelitis. 2. History of pheochromocytoma, status post adrenalectomy. 3. Type 2 diabetes. 4. Depression and anxiety. 5. Hypertension. 6. Hyperlipidemia. 7. Chronic pain syndrome. 8. Obstructive sleep apnea. MEDICATIONS AT DISCHARGE: 1. Venlafaxine 150 mg daily. 2. Vancomycin via PICC line 1250 mg b.i.d. 3. Valsartan 160 mg daily. 4. Flomax 0.4 mg daily. 5. Rapaflo 4 mg daily. 6. Rosuvastatin 20 mg q.h.s. 7. Fish oil 2000 mg b.i.d. 8. Mupirocin topically b.i.d. 9. Glucagon 3 mg left naris p.r.n. hypoglycemia. 10. Metformin 1000 mg b.i.d. 11. Synthroid 275 mcg daily. 12. Levorphanol 1 mg q.i.d. p.r.n. pain. 13. Lispro sliding scale. 14. Tresiba 160 units daily. 15. Hydrocortisone 20 mg b.i.d. 16. Gabapentin 600 mg t.i.d. 17. Finasteride 5 mg daily. 18. Fenofibrate 145 mg daily. 19. Dupilumab 300 mg subcutaneously. 20. Marinol 10 mg q.h.s. 21. Marinol 5 mg in the morning. 22. Bumex 4 mg daily. 23. DuoNeb q.i.d. p.r.n. wheezing. PHYSICAL EXAM: Temperature 98.4, heart rate 76, respiratory rate 16, pulse ox 97% on room air, and blood pressure 132/43. General: Alert, well appearing man , in no distress, resting in bed. HEENT: Pupils equal, round, and reactive to light. Oral mucosa is moist. Neck: No JVP appreciated. Chest: He is in a regular rate and rhythm with no murmurs. His lungs are clear bilaterally. Abdomen is obese with a ventral hernia. Soft, nontender, and nondistended. No CVA tenderness. 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 The left great toe has stitches in it and 2 sections of gauze packing. There is no surrounding erythema and no drainage. IMAGING ON THIS HOSPITALIZATION: A transthoracic echocardiogram obtained on showed the LV cavity size is normal, wall thickness is mildly increased, systolic function is vigorous, the EF is 60% to 65%, RV systolic function is normal, all valves show good excursion and appear structurally normal. CONSULTATIONS DURING THIS ADMISSION: Dr. Mio Cummings from Cardiology and Dr. Samuel Mccain from Pain Management. HOSPITAL COURSE BY PROBLEM: 1. Shortness of breath and generalized fatigue and "not feeling right." Mr. Giraldo was sent from Dr. Grey's office, where he reported not feeling well. He had a difficult time explaining his symptoms, but tells that "the wind was taken out of me" and so he was admitted for an ACS rule out and further cardiac and pulmonary workup. ACS was ruled out with serial troponins. An echocardiogram was unremarkable as above. There was some concern for a type 2 second-degree AV block; however, Cardiology felt this was a Wenckebach and was similar to prior tele strips and EKGs from [place], where he follows with Cardiology. There was some concern about an infectious etiology; however, his blood cultures are negative and he declined a flu swab because he felt entirely better by the second day of admission. Essentially no intervention was performed and he felt completely better on next day and requested discharge to home. He was evaluated again by Dr. Moncada the following day, who suggests he may have gotten some pulmonary edema from uncontrolled hypertension and became short of breath. However, his diuretics were not changed during this admission and again he felt better without intervention. She suggested that he follow up with his regular television writer for a possible event monitor to ensure there are no dysrhythmias contributing to his symptoms and follow up with his top bottom attaching machine operator for CPAP for reevaluation. He was educated to avoid excessive salt and NSAIDs, in case he has some component of diastolic dysfunction, which is suspected given his PELON and obesity, and again he will follow up with his primary television writer. 2. Type 2 diabetes. He was continued on his home regimen. No changes were made to his insulin. 3. History of pheochromocytoma, status post adrenalectomy. He is continued on his hydrocortisone at discharge. At the time of admission, he was put on stress dose hydrocortisone but no changes were ultimately made to his home dosing. 4. Obstructive sleep apnea. It sounds like his CPAP is not at the right setting or not fitting him correctly as he has had discomfort using it over the past couple of months. We suggest that he follow up with his top bottom attaching machine operator for re-titration. 5. Hypothyroid. He was continued on his usual dose of Synthroid. 6. Osteomyelitis. He is currently being treated with IV antibiotics via a PICC line at home. He was continued on his home dose of vancomycin. He recently had an outpatient trough that was 17, so this dose was not adjusted. He has followup with Podiatry at the end of this week. DISPOSITION: Mr. Giraldo is being discharged to home on 09/17/19 with his . They both agree that he has improved without any change in his medications. His workup has been largely unrevealing; however, we have ruled out ACS, acute decompensated heart failure, worsening infection or any other metabolic complication. He requests discharge to home and has followup arranged with his barrel planer, his television writer, his top bottom attaching machine operator, and his primary care physician. CONDITION AT THE TIME OF DISCHARGE: Stable. [id number] #: [id number] FRANCES
[2019-09-18] MEDS ORDERED: Vancomycin Trough Check NOTE FOLLOW UP ONE (06:00)
== END 2019-09-17 20:01 | disposition home or self-care (01) ==
LOC: ED 11:56 → MEDTELE 14:20
PROVIDERS: ADMIT Internal Medicine; ATTEND Internal Medicine
DX: R06.02 Shortness of breath (principal); I44.1 Atrioventricular block, second degree; M86.9 Osteomyelitis, unspecified; E11.9 Type 2 diabetes mellitus without complications; F32.9 Major depressive disorder, single episode, unspecified; F41.9 Anxiety disorder, unspecified; I10 Essential (primary) hypertension; E78.5 Hyperlipidemia, unspecified; G89.4 Chronic pain syndrome; G47.33 Obstructive sleep apnea (adult) (pediatric); E03.9 Hypothyroidism, unspecified; R07.9 Chest pain, unspecified; J44.9 Chronic obstructive pulmonary disease, unspecified; Z79.4 Long term (current) use of insulin; Z85.89 Personal history of malignant neoplasm of other organs and systems; Z79.899 Other long term (current) drug therapy; Z87.891 Personal history of nicotine dependence; R94.31 Abnormal electrocardiogram [ECG] [EKG]
CPT/HCPCS: 36415; 71045; 80048; 80053; 80307; 81003; 81015; 82550; 82553; 82803; 83605; 83735; 83880; 84443; 84484; 85025; 85060; 85610; 85730; 86140; 86850; 86900; 86901; 87040; 87086; 93005; 93306; 96365; 96366; 96367; 96372; 96375; 96376; 99285; A9270-GY; G0378; J0692; J1650; J1720; J3370; J3475

== ENCOUNTER 2022-05-31 12:07 | Inpatient (IN) ==
[2022-05-31] MEDS ORDERED: Hydrocortisone INJ 100 MG/2ML 2 ML VIAL IV ONE (12:49)
[2022-05-31] MEDS ORDERED: Hydrocortisone INJ 100 MG/2ML 2 ML VIAL ONE (12:49)
[2022-05-31 12:50] LABS: ABS Eosinophils 0.3 10^3/ul (0-0.6); ABS Lymphocytes 2.4 10^3/ul (1.0-4.8); ABS Monocytes 0.7 10^3/ul (0-0.8); ABS Neutrophils 5.4 10^3/ul (1.5-7.7); Eosinophil % 3.2 %; Hematocrit 41 % (42-52); Hemoglobin 13.2 g/dL (14.0-18.0); Mean Corpuscular HGB Conc 33 g/dL (31-36); Mean Corpuscular Hemoglobin 27 pg (27-31); Mean Corpuscular Volume 84 fL (80-94); Mean Platelet Volume 8.5 fL (7.4-10.4); Platelet Count 174 10^3/uL (150-450); Red Blood Count 4.84 10^6 /uL (4.18-5.48); Red Cell Distribution Width 16 % (10-15); White Blood Count 8.8 10^3/uL (3.5-10.8)
[2022-05-31 12:51] LABS: PCO2 Arterial 42 mmHg (35-45); PO2 Arterial 97 mmHg (80-100)
[2022-05-31] MEDS ORDERED: Naloxone 0.4 mg VIAL 0.4 mg/ml 1 ml VIAL ONE ×2 (13:01→13:26)
[2022-05-31] MEDS: Atropine 1 MG/ML INJ 1 ML VIAL IV PUSH PRN ×2 (13:06→14:01)
[2022-05-31 13:09] LABS: High Sens Troponin Baseline 7 pg/mL (<20)
[2022-05-31] MEDS ORDERED: Naloxone 0.4 mg VIAL 0.4 mg/ml 1 ml VIAL IV PUSH ONE ×2 (13:09→13:12)
[2022-05-31 13:21] LABS: Urine Appearance Cloudy; Urine Bilirubin Negative (Negative); Urine Blood Negative (Negative); Urine Color Yellow; Urine Glucose Negative (Negative); Urine Ketones Negative (Negative); Urine Nitrite Negative (Negative); Urine Protein Negative (Negative); Urine Specific Gravity 1.017 (1.002-1.030); Urine Urobilinogen Negative (Negative)
[2022-05-31 13:28] LABS: Urine Bacteria Absent (Absent); Urine Red Blood Cell 1+(3-5/hpf) (Absent); Urine White Blood Cell 3+(>20/hpf) (Absent); Urine Yeast Present (Absent)
[2022-05-31 13:37] LABS: ALT 22 U/L (7-52); AST 24 U/L (13-39); Albumin 4.3 g/dL (3.2-5.2); Albumin/Globulin Ratio 1.5 (1-3); Alcohol, S < 13 mg/dL (<13); Alkaline Phosphatase 86 U/L (35-149); Anion Gap 7 mmol/L (2-11); Blood Urea Nitrogen 32 mg/dL (6-24); CO2 Carbon Dioxide 26 mmol/L (22-32); Chloride 106 mmol/L (101-111); Globulin 2.9 g/dL (2-4); Glucose 55 mg/dL (70-100); Magnesium 2.1 mg/dL (1.9-2.7); Potassium 3.7 mmol/L (3.5-5.0); Sodium 139 mmol/L (135-145); Total Protein 7.2 g/dL (6.4-8.9)
[2022-05-31] MEDS ORDERED: Piperacillin/Tazobac ADVAN 3.375 GM in NS 0.9% 100 ml BAG 100 ML IV ONE (13:44)
[2022-05-31] MEDS ORDERED: Dextrose 50% Syringe 50 ml 25 GM/50 ML SYRINGE IV PUSH PRN (13:45)
[2022-05-31 13:48] LABS: TSH Ultra Thyroid Stim Horm 0.22 mcIU/mL (0.34-5.60)
[2022-05-31] MEDS ORDERED: Enoxaparin 40 MG/0.4 ML SYR SUBCUT SCH (14:00)
[2022-05-31] MEDS ORDERED: Atropine 0.1 MG/ML 10 ml SYR (1 mg) ONE (14:01)
[2022-05-31] MEDS ORDERED: Polyethylene Glycol 3350 17 GM PACKET PO PRN (15:06)
[2022-05-31] MEDS ORDERED: Triamcinolone 0.5% OINT 1 TUBE TOPICAL PRN (15:15)
[2022-05-31 15:39] LABS: Phosphorus 3.5 mg/dL (2.5-5.0)
[2022-05-31 15:44] LABS: Free T4 1.11 ng/dL (0.61-1.12)
[2022-05-31] MEDS: KCL 20 MEQ/100 ML IVPREMIX 20 MEQ/100 ML BAG IV SCH ×2 (16:15→18:19)
[2022-05-31 16:22] LABS: T4, Total 11.29 mcg/dL (6.09-12.23)
[2022-05-31 16:29] LABS: Urine Benzodiazepine Screen None Detected (None Detect); Urine Cannabinoids Screen Presumptive Positive (None Detect); Urine Opiates Screen None Detected (None Detect)
[2022-05-31 16:38] LABS: Vitamin B12 458 pg/mL (180-914)
[2022-05-31] MEDS ORDERED: Atropine 0.1 MG/ML 10 ml SYR (1 mg) IV PUSH PRN (16:54)
[2022-05-31 18:05] LABS: High Sensitivity Troponin 1 Hr 7 pg/mL (<20)
[2022-05-31] MEDS ORDERED: D5W 1000 ml BAG 1,000 ML IV SCH (19:00)
[2022-05-31 20:16] LABS: High Sensitivity Troponin 3 Hr 8 pg/mL (<20)
[2022-05-31] MEDS: Mometasone/Formoter 200/5 MDI INH SCH (20:40)
[2022-05-31] MEDS ORDERED: cefTRIAXone VIAL 1,000 MG in NS 0.9% 50 ML 50 ML IVPB SCH (22:00)
[2022-05-31] MEDS ORDERED: Sulfamethoxazole/Trimeth IV 0 MG in D5W 500 ml BAG 500 ML IVPB SCH (22:00)
[2022-05-31] MEDS: Dextran 70/Hypromellose Tears Eye Drops 15 ml BTL (for Artificials Tears) BOTH EYES SCH (22:05)
[2022-05-31] MEDS: Hydrocortisone INJ 100 MG/2ML 2 ML VIAL IV SCH (22:05)
[2022-05-31] MEDS: cefTRIAXone 1 gm/50 mL D5W 1 GM/50 ML BAG IV SCH (22:05)
[2022-06-01] MEDS: Lidocaine PATCH 5% PATCH TRANSDERM SCH (05:35)
[2022-06-01] MEDS: Hydrocortisone INJ 100 MG/2ML 2 ML VIAL IV SCH ×3 (05:35→20:54)
[2022-06-01 05:56] LABS: ABS Monocytes 0.4 10^3/ul (0-0.8); ABS Neutrophils 9.4 10^3/ul (1.5-7.7); Hematocrit 35 % (42-52); Hemoglobin 11.5 g/dL (14.0-18.0); Lymphocyte % 9.4 %; Mean Corpuscular HGB Conc 33 g/dL (31-36); Mean Corpuscular Hemoglobin 27 pg (27-31); Mean Corpuscular Volume 83 fL (80-94); Mean Platelet Volume 8.1 fL (7.4-10.4); Platelet Count 186 10^3/uL (150-450); Red Cell Distribution Width 16 % (10-15); White Blood Count 10.9 10^3/uL (3.5-10.8)
[2022-06-01] MEDS ORDERED: Levothyroxine 100 MCG/5 ML VIAL IV SCH (06:00)
[2022-06-01 06:13] LABS: Calcium 9.1 mg/dL (8.6-10.3); HDL Cholesterol 31.9 mg/dL; Magnesium 1.8 mg/dL (1.9-2.7); Phosphorus 4.5 mg/dL (2.5-5.0); Potassium 4.1 mmol/L (3.5-5.0)
[2022-06-01] MEDS ORDERED: Magnesium Sulfate IV 1GM/100ML 1 GM/100 ML BAG IV ONE (06:23)
[2022-06-01] MEDS: Mometasone/Formoter 200/5 MDI INH SCH ×2 (07:39→20:39)
[2022-06-01] MEDS ORDERED: Hydrocortisone INJ 100 MG/2ML 2 ML VIAL IV SCH ×2 (09:00→16:00)
[2022-06-01] MEDS ORDERED: TROSPIUM CHLORIDE 60 MG PO SCH (09:00)
[2022-06-01] MEDS: Venlafaxine XR 75 mg PO SCH (10:11)
[2022-06-01] MEDS: CMC:LINACLOTIDE 72 MCG CAP (NF) PO SCH (10:12)
[2022-06-01] MEDS: Dextran 70/Hypromellose Tears Eye Drops 15 ml BTL (for Artificials Tears) BOTH EYES SCH ×2 (10:12→21:25)
[2022-06-01] MEDS: cefTRIAXone 1 gm/50 mL D5W 1 GM/50 ML BAG IV SCH (20:54)
[2022-06-02] MEDS: Mometasone/Formoter 200/5 MDI INH SCH (07:12)
[2022-06-02 07:26] LABS: Hematocrit 37 % (42-52); Hemoglobin 11.9 g/dL (14.0-18.0); Mean Corpuscular HGB Conc 32 g/dL (31-36); Mean Corpuscular Hemoglobin 27 pg (27-31); Mean Corpuscular Volume 83 fL (80-94); Mean Platelet Volume 8.6 fL (7.4-10.4); Platelet Count 211 10^3/uL (150-450); Red Blood Count 4.42 10^6 /uL (4.18-5.48); Red Cell Distribution Width 16 % (10-15)
[2022-06-02] MEDS: Lidocaine PATCH 5% PATCH TRANSDERM SCH (08:14)
[2022-06-02] MEDS: Venlafaxine XR 75 mg PO SCH (08:24)
[2022-06-02] MEDS: Dextran 70/Hypromellose Tears Eye Drops 15 ml BTL (for Artificials Tears) BOTH EYES SCH (08:24)
[2022-06-02] MEDS: CMC:LINACLOTIDE 72 MCG CAP (NF) PO SCH (08:24)
[2022-06-02 08:29] LABS: Calcium 9.8 mg/dL (8.6-10.3); Magnesium 1.9 mg/dL (1.9-2.7); Potassium 3.9 mmol/L (3.5-5.0); eGFR CKD-EPI 95.2 (>60)
[2022-06-02] MEDS ORDERED: Insulin GLARGINE 100 un/ml 10 ml VIAL SUBCUT ONE (15:15)
[2022-06-02] MEDS ORDERED: Dextrose 50% Syringe 50 ml 25 GM/50 ML SYRINGE IV PUSH PRN (15:15)
[2022-06-02 18:21] VITALS: BP 138/66
== END 2022-06-02 18:20 | disposition home or self-care (01) | DRG 948 ==
LOC: ED 12:07 → EDHOLD 13:39 → ICU 14:31 → MEDTELE 06-01 12:19
PROVIDERS: ADMIT Internal Medicine; ATTEND Internal Medicine